=== PATIENT | female | born 1935 | race Caucasian/White ===

== ENCOUNTER 2020-05-25 17:35 | Emergency (ER) | payer MEDICARE, MEDICAID ==
[~2020-05-25] VITALS: Ht 167.6 cm; Wt 128.6 kg
--- NOTE | 2020-05-25 18:16 | EKG ---
[address] [address] Test Date: 2020-05-25 Test Time: 18:09:59 Pat Name: YAAKOV MARTE Department: Room: Gender: F Erp Programmer: BRIDGET : 1935 Requested By: PASTORA BURNHAM Order Number: [id number] Reading MD: Yao Garcia Measurements Intervals [place] Rate: 71 P: 38 MO: 264 QRS: 26 QRSD: 98 T: 31 QT: 380 QTc: 413 Interpretive Statements SINUS ARRHYTHMIA PROLONGED MO INTERVAL Electronically Signed On 05-31-2020 12:08:52 PRODUCT DEVELOPMENT SPECIALIST by Yao Garcia
--- NOTE | 2020-05-25 18:19 | PHYS DOC ---
Past History Past Medical History: A-Fib, COPD, Hypertension Past Surgical History: No Surgical History Alcohol Use: None Adult General Chief Complaint Chief Complaint: General Complaint HPI HPI Patient is a female with history of COPD on oxygen 2 L at night, A. fib, hypertension, who presents the ED today to be evaluated for chills and not getting warm. Patient states for the last 3 days she keeps getting chills and feeling cold. She sates she has tired raising the temperature in the house as well as covering herself with no improvement. Denies any chest pain, unusual shortness of breath, denies any abdominal pain, diarrhea. Review of Systems Review of Systems Constitutional: Reports chils. Denies fever Eyes: Denies change in visual acuity, redness, or eye pain [] HENT: Denies nasal congestion or sore throat [] Respiratory: Denies cough or shortness of breath [] Cardiovascular: No additional information not addressed in HPI [] GI: Denies abdominal pain, nausea, vomiting, bloody stools or diarrhea [] : Denies dysuria or hematuria [] Musculoskeletal: Denies back pain or joint pain [] Integument: Denies rash or skin lesions [] Neurologic: Denies headache, focal weakness or sensory changes [] All other systems were reviewed and found to be within normal limits, except as documented in this note. Allergies Allergies Allergies Coded Allergies Type Severity Reaction Last Updated Verified morphine Allergy Unknown 05/25/20 Yes Physical Exam Physical Exam Constitutional: Well developed, well nourished, no acute distress, non-toxic appearance. [] HENT: Normocephalic, atraumatic, bilateral external ears normal, oropharynx moist, no oral exudates, nose normal. [] Eyes: PERRLA, EOMI, conjunctiva normal, no discharge. [] Neck: Normal range of motion, no tenderness, supple, no stridor. [] Cardiovascular:irregular Lungs & Thorax: Bilateral breath sounds clear to auscultation [] Abdomen: Bowel sounds normal, soft, no tenderness, no masses, no pulsatile masses. [] Skin: Warm, dry, no erythema, no rash. [] Back: No tenderness, no CVA tenderness. [] Extremities: No tenderness, no cyanosis, no clubbing, ROM intact, no edema. [] Neurologic: Alert and oriented X 3, normal motor function, normal sensory function, no focal deficits noted. [] Psychologic: Affect normal, judgement normal, mood normal. [] Current Patient Data Vital Signs Vital Signs Date Time Temp Pulse Resp B/P (MAP) Pulse Ox O2 Delivery O2 Flow Rate FiO2 05/25/20 17:40 97.8 78 16 161/74 (103) 95 Room Air EKG EKG [address] Hernández sinus rhythm HR 71 no STEMI[] Radiology/Procedures Radiology/Procedures []PROCEDURE: PORTABLE CHEST 1V Exam: Chest one view INDICATION: Chills TECHNIQUE: Frontal view of the chest Comparisons: None FINDINGS: Heart is enlarged. Pulmonary vessels are within normal limits. The lung and pleural spaces are clear. There is a linear density measuring approximately 10 cm overlying the right nuria. IMPRESSION: 1. No acute cardiopulmonary process. 2. Linear density measuring approximately 10 cm overlying the right nuria which is unknown etiology. This may be exterior to the patient, correlate with physical exam. Electronically signed by: Suzi Perez MD (05/25/2020 6:22 PM) [facility] DICTATED AND SIGNED BY: SUZI PEREZ MD DATE: 05/25/201821 CC: MALACHI; PASTORA BURNHAM APRN; ROE MAYS ~ Heart Score Risk Factors: Risk Factors: DM, Current or recent (<one month) smoker, HTN, HLP, family history of CAD, obesity. Risk Scores: Risk Factors: DM, Current or recent (<one month) smoker, HTN, HLP, family history of CAD, obesity. Course & Med Decision Making Course & Med Decision Making Pertinent Labs and Imaging studies reviewed. (See chart for details) This is a 84-year-old female patient presenting to the ED today with chills and not feeling warm for 3 days. Vitals on arrival to the ED temperature is 97.8, heart rate 78, blood pressure 161/74, respirations 16, O2 sats 95% on room air. CBC with a normal WBC, hemoglobin 10.0, hematocrit 32.2, creatinine 1.9 with BUN of 34, patient states she has history of chronic renal insufficiency. She states she follows up with her PCP for this. Chest x-ray is negative, EKG is negative for any acute findings. Troponin is normal. Urine analysis negative for infection. She was discharged to home. Follow-up with her PCP in the course of this week or next week. Dragon Disclaimer Dragon Disclaimer This electronic medical record was generated, in whole or in part, using a voice recognition dictation system. Departure Departure: Impression: Primary Impression: Chills Additional Impressions: Person under investigation for COVID-19 CRF (chronic renal failure) Disposition: 01 DC HOME SELF CARE/HOMELESS Condition: STABLE Referrals: ROE MAYS (PCP) follow up in the course of this week or next week Patient Instructions: Fever, Adult, [id number] Additional Instructions: You were evaluated in the emergency room, your work-up was negative for any acute findings. You were tested for COVID-19. Quarantine yourself until you get results from us. Maintain good hand hygiene. We will call you with results from your test in the course of this week or next week. Continue following up with your primary care doctor. Consider keeping yourself warm including dressing warm, warm drinks at home and running the heat at a reasonable temperature but will keep it down. Problem Qualifiers Additional Impressions: CRF (chronic renal failure) Chronic kidney disease stage: unspecified stage Qualified Codes: N18.9 - Chronic kidney disease, unspecified PASTORA BURNHAM LITHOGRAPHIC STRIPPER May 25, 2020 18:19
[2020-05-25 18:25] VITALS: BP 159/84
--- NOTE | 2020-05-25 18:25 | RAD ---
Exam: Chest one view INDICATION: Chills TECHNIQUE: Frontal view of the chest Comparisons: None FINDINGS: Heart is enlarged. Pulmonary vessels are within normal limits. The lung and pleural spaces are clear. There is a linear density measuring approximately 10 cm overlying the right nuria. IMPRESSION: 1. No acute cardiopulmonary process. 2. Linear density measuring approximately 10 cm overlying the right nuria which is unknown etiology. This may be exterior to the patient, correlate with physical exam. Electronically signed by: Suzi Reynoso MD (05/25/2020 6:22 PM) [facility]
[2020-05-25 18:39] LABS: BASO % 1 % (0-3); EOS # 0.2 x10^3/uL (0.0-0.7); EOS % 3 % (0-3); HEMATOCRIT 32.2 % (36.0-47.0); LYMPH # 1.4 x10^3/uL (1.0-4.8); LYMPH % 23 % (24-48); MEAN CORPUSCULAR HEMOGLOBIN 27 pg (25-35); MEAN CORPUSCULAR HGB CONC 31 g/dL (31-37); MEAN CORPUSCULAR VOLUME 85 fL (79-100); MONO # 0.6 x10^3/uL (0.0-1.1); MONO % 10 % (0-9); NEUT % 63 % (31-73); PLATELET COUNT 239 x10^3/uL (140-400); RED BLOOD COUNT 3.77 x10^6/uL (3.50-5.40); RED CELL DISTRIBUTION WIDTH 14.1 % (11.5-14.5); WHITE BLOOD COUNT 6.2 x10^3/uL (4.0-11.0)
[2020-05-25 18:47] LABS: CALCIUM 8.7 mg/dL (8.5-10.1); CREATININE 1.9 mg/dL (0.6-1.0); GFR 25.1; POTASSIUM 4.2 mmol/L (3.5-5.1)
[2020-05-25 19:14] LABS: ALBUMIN 3.3 g/dL (3.4-5.0); ALBUMIN/GLOBULIN RATIO 0.8 (1.0-1.7); MAGNESIUM 2.3 mg/dL (1.8-2.4); TOTAL BILIRUBIN 0.2 mg/dL (0.2-1.0); TOTAL PROTEIN 7.7 g/dL (6.4-8.2)
[2020-05-25 19:50] LABS: BARBITURATES NEG (NEG); BENZODIAZEPINES NEG (NEG); CANNABINOIDS NEG (NEG); COCAINE NEG (NEG); METHADONE NEG (NEG); OPIATES NEG (NEG); PHENCYCLIDINE NEG (NEG)
[2020-05-25 19:51] LABS: BILIRUBIN,URINE NEG (NEG); CLARITY,URINE CLEAR; COLOR,URINE STRAW; GLUCOSE,URINE NEG (NEG); NITRITE,URINE NEG (NEG); RBC,URINE 0 /HPF (0-2); UROBILINOGEN,URINE 0.2 mg/dL (0.2 mg/dL)
[2020-05-25 19:52] LABS: BACTERIA,URINE FEW /HPF (0-FEW); SQUAMOUS EPITHELIAL CELL,UR FEW /LPF
[2020-05-25 19:56] LABS: AMPHETAMINE/METHAMPHETAMINE NEG (NEG)
--- NOTE | 2020-05-27 15:16 | NUR ---
IP: attempt to notify patient of CIVUD result, no working phone number, will send letter.
== END 2020-05-25 20:30 | disposition home or self-care (01) ==
LOC: ER 17:35
DX: I12.9 Hypertensive chronic kidney disease with stage 1 through stage 4 chronic kidney disease, or unspecified chronic kidney disease (principal); N18.9 Chronic kidney disease, unspecified; R50.9 Fever, unspecified; I48.91 Unspecified atrial fibrillation; J44.9 Chronic obstructive pulmonary disease, unspecified; Z20.828 Contact with and (suspected) exposure to other viral communicable diseases; Z88.5 Allergy status to narcotic agent
CPT/HCPCS: 36415; 71045; 80053; 80307; 81001; 82553; 83735; 83880; 84484; 85025; 87086; 93005; 99285; C9803; U0003; 87077; 87186

== ENCOUNTER 2020-06-13 12:47 | Inpatient (IN) | payer MEDICARE, MEDICAID ==
[~2020-06-13] VITALS: Ht 177.8 cm; Wt 125.1 kg
--- NOTE | 2020-06-13 13:19 | EKG ---
[address] [address] Test Date: 2020-06-13 Test Time: 13:11:23 Pat Name: YAAKOV MARTE Department: Room: Gender: F Day Habilitation Supervisor: DK : 1935 Requested By: PAVAN CHAPMAN Order Number: [id number] Reading MD: Measurements Intervals [place] Rate: 101 P: 0 ID: [id number] QRS: 26 QRSD: 90 T: 34 QT: 320 QTc: 416 Interpretive Statements SINUS TACHYCARDIA PROLONGED ID INTERVAL ABNORMAL ECG RI6.02 No previous ECG available for comparison
--- NOTE | 2020-06-13 13:27 | PHYS DOC ---
Past History Past Medical History: A-Fib, COPD, Hypertension Past Surgical History: No Surgical History Alcohol Use: None General Adult EDM: Chief Complaint: FEVER HPI: HPI: Patient is a 84-year-old female who arrives via EMS with chief complaint of low- grade fever and generalized weakness. Patient has had a low-grade febrile and difficulty walking over last couple days. Patient had a negative Covid test 4 days ago. Patient has chronic shortness of breath which is unchanged. Patient has difficulty ambulating. Is unable to get around at home. Patient denies any nausea vomiting or diarrhea. Review of Systems: Review of Systems: Constitutional: Denies fever or chills Eyes: Denies change in visual acuity HENT: Denies nasal congestion or sore throat Respiratory: Denies cough but has chronic shortness of breath Cardiovascular: Denies chest pain complains of chronic edema of bilateral lower extremities GI: Denies abdominal pain, nausea, vomiting, bloody stools or diarrhea : Complains urinary frequency Musculoskeletal: Integument: Denies rash Denies back pain or joint pain Neurologic: Denies headache, complains of generalized weakness worse in the lower extremities Endocrine: Denies polyuria or polydipsia Lymphatic: Denies swollen glands Psychiatric: Denies depression or anxiety Current Medications: Current Meds: Current Medications Ceftriaxone Sodium 1 gm/ Sodium Chloride 50 ml @ 100 mls/hr 1X ONCE IV ; Start 06/13/20 at 14:30; Stop 06/13/20 at 14:59 Sodium Chloride 500 ml @ 0 mls/hr 1X ONCE IV ; Start 06/13/20 at 14:30; Stop 06/13/20 at 14:31; Status DC Allergies: Allergies: Allergies Coded Allergies Type Severity Reaction Last Updated Verified morphine Allergy Unknown 06/13/20 Yes Physical Exam: PE: Constitutional: Well developed, well nourished, no acute distress, non-toxic appearance. [] HENT: Normocephalic, atraumatic, bilateral external ears normal, no trismus nose normal. [] Eyes: PERRLA, EOMI, conjunctiva normal, no discharge. [] Neck: Normal range of motion, no tenderness, supple, no stridor. [] Cardiovascular:Heart rate regular rhythm, peripheral pulses are intact cap refill is less than 3 seconds Lungs & Thorax: Bilateral breath sounds clear, no respiratory distress Abdomen: soft, no tenderness, no masses, no pulsatile masses. [] Skin: Warm, dry, no erythema, no rash. [] Back: No tenderness, no CVA tenderness. [] Extremities: No tenderness, no cyanosis, no clubbing, ROM intact, 2+ bilateral extremity edema Neurologic: Alert and oriented X 3, normal motor function, normal sensory function, no focal deficits noted. [] Generally weak Psychologic: Affect normal, judgement normal, mood normal. [] Current Patient Data: Labs: Laboratory Tests Test 06/13/20 13:23 06/13/20 13:30 Urine Collection Type Unknown Urine Color Yellow Urine Clarity Turbid Urine pH 7.0 Urine Specific [place] 1.020 Urine Protein Neg Urine Glucose (UA) Neg mg/dL Urine Ketones (Stick) Neg mg/dL Urine Blood Small Urine Nitrite Pos Urine Bilirubin Neg Urine Urobilinogen Dipstick 0.2 mg/dL Urine Leukocyte Esterase Small Urine RBC 6-10 /HPF Urine WBC 11-20 /HPF Urine Squamous Epithelial Cells Few /LPF Urine Bacteria Many /HPF White Blood Count 5.1 x10^3/uL Red Blood Count 3.70 x10^6/uL Hemoglobin 9.7 g/dL Hematocrit 31.0 % Mean Corpuscular Volume 84 fL Mean Corpuscular Hemoglobin 26 pg Mean Corpuscular Hemoglobin Concent 31 g/dL Red Cell Distribution Width 14.9 % Platelet Count 180 x10^3/uL Neutrophils (%) (Auto) 68 % Lymphocytes (%) (Auto) 12 % Monocytes (%) (Auto) 18 % Eosinophils (%) (Auto) 2 % Basophils (%) (Auto) 0 % Neutrophils # (Auto) 3.5 x10^3uL Lymphocytes # (Auto) 0.6 x10^3/uL Monocytes # (Auto) 0.9 x10^3/uL Eosinophils # (Auto) 0.1 x10^3/uL Basophils # (Auto) 0.0 x10^3/uL Sodium Level 141 mmol/L Potassium Level 4.1 mmol/L Chloride Level 105 mmol/L Carbon Dioxide Level 25 mmol/L Anion Gap 11 Blood Urea Nitrogen 30 mg/dL Creatinine 2.0 mg/dL Estimated GFR (Cockcroft-Gault) 23.7 BUN/Creatinine Ratio 15 Glucose Level 107 mg/dL Lactic Acid Level 0.8 mmol/L Calcium Level 8.3 mg/dL Total Bilirubin Pending Aspartate Amino Transf (AST/SGOT) Pending Alanine Aminotransferase (ALT/SGPT) Pending Alkaline Phosphatase Pending EW-Nsg-I-Type Natriuretic Peptide Pending Total Protein Pending Albumin Pending Albumin/Globulin Ratio Pending Current Medications Medications (Trade) Dose Ordered Sig/Benny Route PRN Reason Start Time Stop Time Status Last Admin Dose Admin Ceftriaxone Sodium 1 gm/ Sodium Chloride 50 ml @ 100 mls/hr 1X ONCE IV 06/13/20 14:30 06/13/20 14:59 Sodium Chloride 500 ml @ 0 mls/hr 1X ONCE IV 06/13/20 14:30 06/13/20 14:31 DC Vital Signs: Vital Signs Date Time Temp Pulse Resp B/P (MAP) Pulse Ox O2 Delivery O2 Flow Rate FiO2 06/13/20 12:58 100.2 106 15 130/46 (74 90 Room Air EKG: EKG: [] EKG interpreted by ut sinus tachycardia with a rate of 101 normal axis normal QTC, first-degree AV block, normal ST segments Radiology/Procedures: Radiology/Procedures: [][place] [address] IMAGING REPORT Signed PATIENT: YAAKOV MARTE JACCOUNT: [id number] : 1935 LOCATION: ER AGE: 84 SEX: F EXAM STATUS: REG ER ORD. PHYSICIAN: PAVAN CHAPMAN MD REASON: weak PROCEDURE: PORTABLE CHEST 1V PORTABLE CHEST 1V INDICATION: Reason: weak / Spl. Instructions: / History: . COMPARISON STUDY: 05/25/2020. FINDINGS: Rotation to the right. Lungs: Normal lung volume. No pulmonary mass or consolidation. The tracheobronchial tree and hilar structures are normal. Pleura: No pleural effusion or pneumothorax. Heart and Mediastinum: Cardiomegaly. Tortuous thoracic aorta. Bones: Advanced degenerative changes of the shoulders. IMPRESSION: No consolidation. Electronically signed by: Iva Breaux MD (06/13/2020 2:15 PM) [id number] DICTATED AND SIGNED BY: IVA BREAUX MD DATE: 06/13/20 1055 CC: PAVAN CHAPMAN MD; ROE MAYS ~ Heart Score: Risk Factors: Risk Factors: DM, Current or recent (<one month) smoker, HTN, HLP, family history of CAD, obesity. Risk Scores: Score 0 - 3: 2.5% MACE over next 6 weeks - Discharge Home Score 4 - 6: 20.3% MACE over next 6 weeks - Admit for Clinical Observation Score 7 - 10: 72.7% MACE over next 6 weeks - Early Invasive Strategies Course & Med Decision Making: Course & Med Decision Making Pertinent Labs and Imaging studies reviewed. (See chart for details) [] 84-year-old female presents with generalized weakness. Patient also has a low-grade fever. Patient be swabbed for COVID-19 and is a person under investigation. Patient also has a urinary tract infection will be treated with antibiotics for this. Discussed the case with Dr. Ignaico who will admit the patient. Dragon Disclaimer: Dragon Disclaimer: This electronic medical record was generated, in whole or in part, using a voice recognition dictation system. Departure Departure: Impression: Primary Impression: UTI (urinary tract infection) Additional Impressions: Person under investigation for COVID-19 Fever CRF (chronic renal failure) Generalized weakness Pyelonephritis Disposition: 01 DC HOME SELF CARE/HOMELESS Admitting Physician: Benito Ignacio Condition: STABLE Referrals: ROE MAYS (PCP) PAVAN CHAPMAN MD Jun 13, 2020 13:27
[2020-06-13 13:47] LABS: BILIRUBIN,URINE NEG (NEG); CLARITY,URINE TURBID; COLOR,URINE YELLOW; GLUCOSE,URINE NEG (NEG)
[2020-06-13 13:48] LABS: BACTERIA,URINE MANY /HPF (0-FEW); NITRITE,URINE POS (NEG); SQUAMOUS EPITHELIAL CELL,UR FEW /LPF; UROBILINOGEN,URINE 0.2 mg/dL (0.2 mg/dL)
--- NOTE | 2020-06-13 14:18 | RAD ---
PORTABLE CHEST 1V INDICATION: Reason: weak / Spl. Instructions: / History: . COMPARISON STUDY: 05/25/2020. FINDINGS: Rotation to the right. Lungs: Normal lung volume. No pulmonary mass or consolidation. The tracheobronchial tree and hilar structures are normal. Pleura: No pleural effusion or pneumothorax. Heart and Mediastinum: Cardiomegaly. Tortuous thoracic aorta. Bones: Advanced degenerative changes of the shoulders. IMPRESSION: No consolidation. Electronically signed by: Abiodun Breaux MD (06/13/2020 2:15 PM) [id number]
[2020-06-13 14:19] LABS: BASO % 0 % (0-3); EOS # 0.1 x10^3/uL (0.0-0.7); EOS % 2 % (0-3); HEMOGLOBIN 9.7 g/dL (12.0-15.5); LYMPH # 0.6 x10^3/uL (1.0-4.8); LYMPH % 12 % (24-48); MEAN CORPUSCULAR HEMOGLOBIN 26 pg (25-35); MEAN CORPUSCULAR HGB CONC 31 g/dL (31-37); MEAN CORPUSCULAR VOLUME 84 fL (79-100); MONO # 0.9 x10^3/uL (0.0-1.1); MONO % 18 % (0-9); NEUT # 3.5 x10^3uL (1.8-7.7); NEUT % 68 % (31-73); PLATELET COUNT 180 x10^3/uL (140-400); RED CELL DISTRIBUTION WIDTH 14.9 % (11.5-14.5); WHITE BLOOD COUNT 5.1 x10^3/uL (4.0-11.0)
[2020-06-13] MEDS ORDERED: IV NORMAL SALINE 500ML 500 ML IV ONE (14:30)
[2020-06-13 14:39] LABS: CALCIUM 8.3 mg/dL (8.5-10.1); GFR 23.7; POTASSIUM 4.1 mmol/L (3.5-5.1)
[2020-06-13 14:54] LABS: ALBUMIN 3.1 g/dL (3.4-5.0); ALBUMIN/GLOBULIN RATIO 0.7 (1.0-1.7); TOTAL BILIRUBIN 0.2 mg/dL (0.2-1.0); TOTAL PROTEIN 7.4 g/dL (6.4-8.2)
[2020-06-13] MEDS ORDERED: cefTRIAXone SODIUM 1 GM VIAL ONE (15:00)
[2020-06-13] MEDS ORDERED: IV NORMAL SALINE 50ML 50 ML ONE (15:00)
--- NOTE | 2020-06-13 15:19 | HP ---
ADMIT DATE: 06/13/2020 ATTENDING PHYSICIAN: Dr. Samuel. CHIEF COMPLAINT: Weakness. HISTORY OF PRESENT ILLNESS: The patient is an 84-year-old female who lives at home. She was admitted to the ED with low-grade fevers and generalized weakness since yesterday. She had difficulty walking. She had a negative COVID swabs 4 days ago, repeat swab is pending. Clinically, she has symptoms of urinary tract infections with an abnormal urinalysis, cultures are pending. Blood cultures have been drawn. She has been able to get around, but she has significant obesity and stasis dermatitis. She walks normally with the help of a walker. She is admitted then for treatment of urinary tract infection, rule out COVID-19 coronavirus. PAST MEDICAL HISTORY: Gleaned from the chart is significant for paroxysmal atrial fibrillation, COPD, essential hypertension. PAST SURGICAL HISTORY: No surgical history. ALLERGIES: SHE HAS ALLERGIES TO MORPHINE. CURRENT MEDICATIONS: I could not ascertain. We are in the process of determining the proper dosages at this time. SOCIAL HISTORY: She is a nonsmoker, nondrinker. FAMILY HISTORY: Noncontributory. REVIEW OF SYSTEMS: Significant for the generalized weakness. Negative recent COVID exposure. No nausea. She has some chronic anemia. She has arthritic type pain, no cough, congestion, high-grade fevers. All other systems reviewed and turned to be negative. PHYSICAL EXAMINATION: GENERAL: When I saw her, this is a pleasant elderly female. VITAL SIGNS: Initial temperature in the ED was 100.2 degrees Fahrenheit, blood pressure 130/46, pulse was 100 and regular, oxygen saturation 90% on room air. HEENT: Head is without trauma. Pupils are reactive. Sclerae nonicteric. Oropharynx is clear. NECK: Supple, no bruits identified. LUNGS: Good breath sounds without any rhonchi. CARDIOVASCULAR: Showed distant heart tones. No gallops. Peripheral pulses are palpable and full. ABDOMEN: Soft, obese, protuberant. No organomegaly. Bowel sounds are hypoactive. EXTREMITIES: Showed significant 3+ nonpitting edema with degenerative arthritis. NEUROLOGIC: Focally intact. Speech is fluent. SKIN: Warm and dry. LABORATORY DATA: Hemoglobin is 9.7 g/dL with a white count of 5100. Electrolytes showed a creatinine of 2.0. I do not know her baseline. BUN is 30. Electrolytes within normal range. Urinalysis showed large amount of cells and bacteria, cultures are pending. ASSESSMENT: 1. An 84-year-old female from home with low-grade fevers and weakness. I suspect she has a urinary tract infection. 2. Rule out COVID-19 infection. 3. Paroxysmal atrial fibrillation. 4. Essential hypertension. 5. Chronic obstructive pulmonary disease by history. 6. Generalized debilitation. PLAN: 1. Admit to the inpatient unit. 2. Intravenous antibiotics have been started. 3. Blood and urine cultures have been drawn. 4. Continue home meds once we ascertained the dosage. 5. Await COVID-19 swab. 6. Diet as tolerated. STACEY SAMUEL MD DR: GISSEL/carloz JOB#: [id number] / [id number] ROE Sy
[2020-06-13 16:31] VITALS: BP 112/76
[2020-06-13] MEDS ORDERED: FLU VACC QS 2020-21(6MOS+)/PF 0.5 ML SYRINGE. VAX IM ONE (19:30)
[2020-06-13] MEDS ORDERED: HYDR25TA PO (20:05)
[2020-06-13] MEDS ORDERED: OXYC-314 PO (20:05)
[2020-06-13] MEDS ORDERED: CARV25TA PO (20:05)
[2020-06-13] MEDS ORDERED: GABA800T5 PO (20:05)
[2020-06-13] MEDS ORDERED: LEVO75TA5 PO (20:05)
[2020-06-13] MEDS ORDERED: NORT10CA PO (20:05)
[2020-06-13] MEDS ORDERED: SIMV10TA15 PO (20:05)
[2020-06-13] MEDS ORDERED: LOPE2TAB27 PO (20:05)
[2020-06-13] MEDS ORDERED: OMEP20CA16 PO (20:05)
[2020-06-13] MEDS ORDERED: CYCL5TAB PO (20:05)
[2020-06-13] MEDS ORDERED: ROPI0.25 PO (20:05)
[2020-06-13] MEDS ORDERED: WARF-31 PO (20:05)
[2020-06-13] MEDS ORDERED: ANTI-COAG MONITOR BY PHARMACY. MC PRN (20:30)
[2020-06-13] MEDS: rOPINIRole 0.5 MG TABLET. PO SCH (20:46)
[2020-06-13] MEDS: oxyCODONE/APAP 5/325 1 TAB TABLET PO PRN (20:47)
[2020-06-13] MEDS: SIMVASTATIN 10 MG TABLET PO SCH (20:47)
[2020-06-13] MEDS: CYCLOBENZAPRINE 10 MG TABLET. PO PRN (20:47)
[2020-06-13] MEDS: GABAPENTIN 300 MG CAPSULE. PO SCH (20:47)
[2020-06-13] MEDS: GABAPENTIN 400 MG CAPSULE. PO SCH (20:47)
[2020-06-13] MEDS: hydrOXYzine HCL 25 MG TABLET PO SCH (20:47)
[2020-06-14 01:43] VITALS: BP 144/70
[2020-06-14] MEDS: oxyCODONE/APAP 5/325 1 TAB TABLET PO PRN ×3 (02:03→20:39)
[2020-06-14 06:26] VITALS: BP 160/64
[2020-06-14 06:33] VITALS: BP 154/71
[2020-06-14] MEDS: LEVOTHYROXINE 75 MCG TABLET PO SCH (07:40)
[2020-06-14] MEDS: GABAPENTIN 300 MG CAPSULE. PO SCH ×2 (07:41→20:39)
[2020-06-14] MEDS: GABAPENTIN 400 MG CAPSULE. PO SCH ×2 (07:41→20:39)
[2020-06-14] MEDS: PANTOPRAZOLE 40 MG TABLET. PO SCH (07:42)
[2020-06-14] MEDS: CARVEDILOL 12.5 MG TABLET PO SCH ×2 (07:42→17:15)
[2020-06-14] MEDS ORDERED: FLU VACC QS 2020-21(6MOS+)/PF 0.5 ML SYRINGE. VAX IM ONE (09:00)
[2020-06-14] MEDS ORDERED: WARFARIN 5 MG TABLET. PO SCH (09:00)
[2020-06-14 10:57] VITALS: BP 102/84
[2020-06-14] MEDS ORDERED: DEXAMETHASONE 4 MG TABLET PO SCH (14:00)
[2020-06-14 15:10] VITALS: BP 116/74
[2020-06-14 19:50] VITALS: BP 159/92
[2020-06-14] MEDS: SIMVASTATIN 10 MG TABLET PO SCH (20:38)
[2020-06-14] MEDS: rOPINIRole 0.5 MG TABLET. PO SCH (20:38)
[2020-06-14] MEDS: FAMOTIDINE 20 MG TABLET PO SCH (20:38)
[2020-06-14] MEDS: hydrOXYzine HCL 25 MG TABLET PO SCH (20:39)
--- NOTE | 2020-06-15 00:54 | PN ---
DATE: 06/14/2020 ATTENDING PHYSICIAN: Dr. Samuel. SUBJECTIVE: The patient is feeling a little better. She denies any pain or nausea. She is less weak. OBJECTIVE FINDINGS: VITAL SIGNS: Blood pressure today is 102/84, pulse 80 and regular. She is afebrile. Oxygen saturation 94% on 2 liters nasal cannula. HEENT: Head is without trauma. Pupils are reactive. Sclerae nonicteric. Oropharynx clear. NECK: Supple, no bruits. LUNGS: Good breath sounds. CARDIOVASCULAR: Showed regular heart tones. No gallops. ABDOMEN: Soft. EXTREMITIES: Without edema. NEUROLOGIC: Focally intact. Speech is fluent. SKIN: Warm and dry. LABORATORY DATA: Her serology was indeed positive for coronavirus. Repeat chemistry panel was pending. Her creatinine yesterday was 2.0. ASSESSMENT: 1. An 84-year-old female with generalized weakness. 2. COVID-19 coronavirus infection. 3. Urinary tract infection. 4. Paroxysmal atrial fibrillation. 5. Essential hypertension. 6. Chronic kidney disease stage 3. 7. Chronic obstructive pulmonary disease. PLAN: 1. We will initiate empiric Lovenox, Decadron and zinc. 2. Diet as tolerated. 3. Continue antibiotics for UTI. 4. Discharge planning. Eventually, the daughter would like her in a subacute rehab facility. STACEY SAMUEL MD DR: GISSEL/carloz JOB#: [id number] / [id number]
[2020-06-15 01:06] VITALS: BP 139/96
[2020-06-15 05:35] VITALS: BP 149/95
[2020-06-15] MEDS: LEVOTHYROXINE 75 MCG TABLET PO SCH (08:11)
[2020-06-15] MEDS: GABAPENTIN 400 MG CAPSULE. PO SCH ×2 (08:11→19:06)
[2020-06-15] MEDS: GABAPENTIN 300 MG CAPSULE. PO SCH ×2 (08:11→19:05)
[2020-06-15] MEDS: CARVEDILOL 12.5 MG TABLET PO SCH ×2 (08:11→16:24)
[2020-06-15] MEDS: PANTOPRAZOLE 40 MG TABLET. PO SCH (08:11)
[2020-06-15] MEDS: CYCLOBENZAPRINE 10 MG TABLET. PO PRN ×2 (08:11→19:05)
[2020-06-15] MEDS: oxyCODONE/APAP 5/325 1 TAB TABLET PO PRN ×2 (08:12→19:06)
[2020-06-15] MEDS: ZINC SULFATE 220 MG CAPSULE. PO SCH (08:15)
[2020-06-15 12:23] VITALS: BP 138/83
[2020-06-15 15:00] VITALS: BP 129/98
[2020-06-15] MEDS ORDERED: WARFARIN 5 MG TABLET. PO SCH (16:00)
[2020-06-15] MEDS: rOPINIRole 0.5 MG TABLET. PO SCH (19:05)
[2020-06-15] MEDS: hydrOXYzine HCL 25 MG TABLET PO SCH (19:05)
[2020-06-15] MEDS: SIMVASTATIN 10 MG TABLET PO SCH (19:05)
[2020-06-15] MEDS: FAMOTIDINE 20 MG TABLET PO SCH (19:05)
[2020-06-15 20:00] VITALS: BP 141/92
[2020-06-15 23:02] VITALS: BP 133/72
[2020-06-16 04:34] VITALS: BP 162/97
[2020-06-16 06:58] LABS: ALBUMIN/GLOBULIN RATIO 0.7 (1.0-1.7); CALCIUM 7.9 mg/dL (8.5-10.1); CREATININE 1.9 mg/dL (0.6-1.0); GFR 25.1; HEMATOCRIT 30.8 % (36.0-47.0); HEMOGLOBIN 9.6 g/dL (12.0-15.5); POTASSIUM 4.1 mmol/L (3.5-5.1); RED BLOOD COUNT 3.69 x10^6/uL (3.50-5.40); RED CELL DISTRIBUTION WIDTH 14.4 % (11.5-14.5); TOTAL BILIRUBIN 0.1 mg/dL (0.2-1.0); TOTAL PROTEIN 7.3 g/dL (6.4-8.2); WHITE BLOOD COUNT 4.3 x10^3/uL (4.0-11.0)
[2020-06-16] MEDS: CYCLOBENZAPRINE 10 MG TABLET. PO PRN (09:11)
[2020-06-16] MEDS: CARVEDILOL 12.5 MG TABLET PO SCH ×2 (09:12→18:15)
[2020-06-16] MEDS: PANTOPRAZOLE 40 MG TABLET. PO SCH (09:13)
[2020-06-16] MEDS: GABAPENTIN 300 MG CAPSULE. PO SCH ×2 (09:13→19:19)
[2020-06-16] MEDS: LEVOTHYROXINE 75 MCG TABLET PO SCH (09:13)
[2020-06-16] MEDS: GABAPENTIN 400 MG CAPSULE. PO SCH ×2 (09:13→19:19)
[2020-06-16] MEDS: ZINC SULFATE 220 MG CAPSULE. PO SCH (09:13)
[2020-06-16 12:03] VITALS: BP 144/85
--- NOTE | 2020-06-16 14:31 | PN ---
DATE: 06/15/2020 SUBJECTIVE: The patient saw the patient is an 84-year-old female patient who apparently was brought to the Emergency Room with complaint of low-grade fever and generalized weakness. She also had difficulty walking over the last couple of days. She has negative COVID test about 4 days prior to admission. She has chronic shortness of breath, which has been unchanged. The patient has difficulty ambulating. She is unable to get around at home. She is known to have obstructive sleep apnea, on BiPAP machine. She apparently was evaluated in the Emergency Room and her coronavirus was detected on 06/13/2020; however, all her lab works are stable. When I examined her this morning, she was resting flat in bed, in no apparent distress. She was on BiPAP machine, maintaining her oxygen saturation at 95% on 2 liters of oxygen. PHYSICAL EXAMINATION: VITAL SIGNS: Her heart rate was 68, blood pressure was 138/83, temperature 97.6, respiratory rate was 18 and oxygen saturation was 95%. HEENT: Showed normocephalic, atraumatic. NECK: Supple. HEART: Normal first and second heart sounds. No gallop, rub or murmur. CHEST: Clear to auscultation. No crepitation or rhonchi. ABDOMEN: Distended, soft, nontender. NEUROLOGIC: She is awake, alert, responding appropriately. All cranial nerves are intact. She moves extremities without difficulty. Her intake was 713, no output was recorded. LABORATORY DATA: Her most recent lab work showed a serum sodium 141, potassium 4.1, chloride 105, bicarbonate 25, anion gap of 11, BUN 30, creatinine 2, estimated GFR was 24 mL per minute. Her glucose 107, calcium was 8.3. Total bilirubin, AST, ALT, alkaline phosphatase were normal. Her beta natriuretic peptide was 576. Total protein 7.4, albumin was 3.1. Her prothrombin time was 15.9, INR 1.6. Her urine culture showed growth of more than 100,000 colony forming units per mL of Escherichia coli sensitive to all antibiotics. Her blood cultures so far showed no growth after 2 days. ASSESSMENT: 1. An 84-year-old female with generalized weakness. 2. COVID-19 coronavirus infection. 3. Urinary tract infection. 4. Paroxysmal atrial fibrillation, rate controlled, well anticoagulated. 5. Essential hypertension. 6. Chronic kidney disease stage 3. 7. Chronic obstructive pulmonary disease. PLAN: Continue with Lovenox, Decadron and continue with IV antibiotic for UTI. Apparently, the daughter is unable to take care of her at home and would like her to go to a residential facility. GLADYS ZAMUDIO MD DR: CAR/carloz JOB#: [id number] / [id number]
[2020-06-16 15:25] VITALS: BP 116/92
[2020-06-16] MEDS ORDERED: WARFARIN 6 MG TABLET. PO ONE (16:00)
[2020-06-16 19:15] VITALS: BP 138/69
[2020-06-16] MEDS: FAMOTIDINE 20 MG TABLET PO SCH (19:18)
[2020-06-16] MEDS: oxyCODONE/APAP 5/325 1 TAB TABLET PO PRN (19:19)
[2020-06-16] MEDS: hydrOXYzine HCL 25 MG TABLET PO SCH (19:19)
[2020-06-16] MEDS: rOPINIRole 0.5 MG TABLET. PO SCH (19:19)
[2020-06-16] MEDS: SIMVASTATIN 10 MG TABLET PO SCH (19:19)
[2020-06-16 22:49] VITALS: BP 140/75
[2020-06-17 05:13] VITALS: BP 133/82
[2020-06-17] MEDS: ZINC SULFATE 220 MG CAPSULE. PO SCH (07:43)
[2020-06-17] MEDS: PANTOPRAZOLE 40 MG TABLET. PO SCH (07:44)
[2020-06-17] MEDS: GABAPENTIN 400 MG CAPSULE. PO SCH (07:44)
[2020-06-17] MEDS: LEVOTHYROXINE 75 MCG TABLET PO SCH (07:44)
[2020-06-17] MEDS: GABAPENTIN 300 MG CAPSULE. PO SCH (07:44)
[2020-06-17] MEDS: CARVEDILOL 12.5 MG TABLET PO SCH (07:44)
[2020-06-17] MEDS ORDERED: LACTOBACILLUS RHAMNOSUS GG 1 CAPSULE. PO SCH (09:00)
[2020-06-17] MEDS ORDERED: CEFDINIR 300 MG CAPSULE PO SCH (09:00)
--- NOTE | 2020-06-17 10:26 | PN ---
DATE: 06/16/2020 SUBJECTIVE: The patient is resting flat in bed, in no apparent distress. On questioning her, denied any complaint. The nursing staff did not voice any concern and stated that she did very well. She was on room air, maintaining her oxygen saturation at 95%. PHYSICAL EXAMINATION: GENERAL: When I examined her, she looked somewhat pale, but no jaundice, cyanosis or thyromegaly. No jugular venous distention. No limb edema. VITAL SIGNS: Her heart rate was 72, blood pressure was 144/85, temperature was 96.9, respiratory rate 20, and oxygen saturation was 95%. HEAD, EYES, EARS, NOSE AND THROAT: Showed normocephalic, atraumatic. NECK: Supple. HEART: Showed normal first and second heart sounds. No gallop, rub or murmur. CHEST: Clear to auscultation. No crepitation or rhonchi. ABDOMEN: Distended, soft, nontender. NEUROLOGIC: She is demented, but without any obvious lateralizing sign. Her intake was 1600, no output was recorded. LABORATORY DATA: Her lab work this morning showed a white cell count of 4300, hemoglobin 9.6, hematocrit 30.8, MCV 84 and platelet count of 179,000. Her serum sodium was 140, potassium 4.1, chloride 105, bicarbonate 28, anion gap of 7, BUN 37, creatinine 1.9, estimated GFR was 25 mL per minute. Her glucose 132, calcium was 7.9. Total bilirubin, AST, ALT, alkaline phosphatase were normal. Total protein 7.3, albumin 3. Her prothrombin time was 15, INR 1.5. Urinalysis was essentially unremarkable. Her coronavirus SARS-CoV-2 by PCR was positive. ASSESSMENT: 1. An 84-year-old female with generalized weakness. 2. COVID-19 coronavirus infection. 3. Urinary tract infection. 4. Paroxysmal atrial fibrillation, rate controlled, well anticoagulated. 5. Essential hypertension. 6. Chronic kidney disease stage 3. 7. Chronic obstructive pulmonary disease. The patient will be discharged tomorrow to [facility]. GLADYS ZAMUDIO MD DR: CAR/carloz JOB#: [id number] / [id number]
[2020-06-17 10:51] VITALS: BP 111/83
[2020-06-17 14:39] VITALS: BP 105/78
[2020-06-17] MEDS ORDERED: WARFARIN 1 MG TABLET. PO ONE (16:00)
[2020-06-17] MEDS ORDERED: WARFARIN 6 MG TABLET. PO ONE (16:00)
--- NOTE | 2020-06-17 23:32 | DS ---
DATE OF DISCHARGE: 06/17/2020 HOSPITAL COURSE: The patient is an 84-year-old female patient who was admitted on 06/13/2020 with low-grade fever, weakness, and there was suspicion that she has urinary tract infection; however, subsequently she was found to be tested positive for coronavirus COVID-19. She continued to be mostly asymptomatic, hemodynamically stable and afebrile. Her white cell count and platelets were normal as well as her chemistry and a decision was made to discharge her to [facility]. PHYSICAL EXAMINATION: GENERAL: When I saw her this afternoon, she looked well and was clearly in no apparent respiratory distress. No pallor, jaundice, cyanosis, or thyromegaly. No jugular venous distension. No limb edema. VITAL SIGNS: Her heart rate was 82, blood pressure was 105/78, temperature was 99, respiratory rate was 20, and oxygen saturation was 95% on 2.5 liters of oxygen. HEAD, EYES, EARS, NOSE AND THROAT: Showed normocephalic, atraumatic. NECK: Supple. CARDIAC: Normal first and second heart sounds. No gallop, rub or murmur. CHEST: Clear to auscultation. No crepitation or rhonchi. ABDOMEN: Distended, soft, nontender. NEUROLOGIC: She was demented, but without any obvious lateralizing sign. Her intake over the last 24 hours was 1140, no output was recorded. LABORATORY DATA: As of yesterday showed a white cell count of 4300, hemoglobin 9.6, hematocrit 31, MCV 94 and platelet count of 179,000. Serum sodium 140, potassium 4.1, chloride 105, bicarbonate 28, anion gap of 7, BUN 37, creatinine 1.9, estimated GFR was 25 mL per minute. Her glucose 132, calcium was 7.9. Total bilirubin, AST, ALT, alkaline phosphatase were normal. Total protein 7.3, albumin was 3. DISCHARGE MEDICATIONS: The patient was discharged to [facility] to continue on carvedilol 25 mg twice a day, Flexeril 5 mg 3 times a day, gabapentin 800 mg 3 times a day, hydroxyzine 25 mg at bedtime, levothyroxine sodium 75 mcg daily, loperamide 2 mg at bedtime, nortriptyline 10 mg p.o. at bedtime, omeprazole 20 mg daily, oxycodone/APAP 5/325 one tablet every 6 hours, Requip 0.5 mg at bedtime, simvastatin 10 mg at bedtime, warfarin 5 mg daily. Her prothrombin time this morning was 15.5, INR 1.5. FINAL DISCHARGE DIAGNOSES: 1. Asymptomatic COVID-19 virus infection. 2. Urinary tract infection. 3. Paroxysmal atrial fibrillation, rate controlled, well anticoagulated. 4. Essential hypertension. 5. Chronic kidney disease stage 3. 6. Chronic obstructive pulmonary disease. 7. Morbid obesity, obstructive sleep apnea, on CPAP. GLADYS ZAMUDIO MD DR: CAR/carloz JOB#: [id number] / [id number]
== END 2020-06-17 15:39 | DRG 871 ==
LOC: ER 12:47 → 1 SOUTH 14:30
PROVIDERS: ADMIT Hospitalist; ATTEND Hospitalist
PROC: 5A09357 Assistance with Respiratory Ventilation, Less than 24 Consecutive Hours, Continuous Positive Airway Pressure (ICD-10-PCS; principal; 2020-06-15)
DX: A41.89 Other specified sepsis (principal); U07.1 COVID-19; N39.0 Urinary tract infection, site not specified; N12 Tubulo-interstitial nephritis, not specified as acute or chronic; E66.01 Morbid (severe) obesity due to excess calories; G47.33 Obstructive sleep apnea (adult) (pediatric); I12.9 Hypertensive chronic kidney disease with stage 1 through stage 4 chronic kidney disease, or unspecified chronic kidney disease; I48.0 Paroxysmal atrial fibrillation; I87.2 Venous insufficiency (chronic) (peripheral); J44.9 Chronic obstructive pulmonary disease, unspecified; N18.30 Chronic kidney disease, stage 3 unspecified; Z68.39 Body mass index [BMI] 39.0-39.9, adult; Z79.899 Other long term (current) drug therapy; Z88.8 Allergy status to other drugs, medicaments and biological substances
CPT/HCPCS: 36415; 71045; 80053; 81001; 83605; 83880; 84484; 85025; 85027; 85610; 87040; 87077; 87086; 87186; 90471; 90686; 93005; 96365; 99285; J0696; J7040; J8540; U0003; 97535

== ENCOUNTER 2020-08-09 21:10 | Inpatient (IN) | payer MEDICARE, MEDICAID ==
[~2020-08-09] VITALS: Ht 177.8 cm; Wt 128.4 kg
[~2020-08-09 21:10] MED LIST: CARV25TA PO; CYCL5TAB PO; GABA800T5 PO; HYDR25TA PO; LEVO75TA5 PO; LOPE2TAB27 PO; NORT10CA PO; OMEP20CA16 PO; OXYC-314 PO; ROPI0.25 PO; SIMV10TA15 PO; WARF-31 PO
--- NOTE | 2020-08-09 21:22 | PHYS DOC ---
Past History Past Medical History: A-Fib, Anemia, Anxiety, Arthritis, CHF, COPD, CVA, Dementia, Hypertension, TIA, UTI Past Surgical History: Hip Replacement, Knee Replacement, Other Alcohol Use: None General Adult HPI: HPI: ".. I got bed bugs.. .. I am short of breath.. got fevers... . they sent me in .. my.. daughter... said I was not acting right... could nt... take care of ...me... "...".."I just so weak.. can't do anything....coughing too much.." Patient is a 84 year old female who presents with above hx and complaints increased dyspnea, weakness, fever and confusion today. Family has noticed mental status change since 1400 hrs. today. Patient lives at home with her daughter. Patient reportedly having low-grade fevers and generalized weakness. Has had increased problems with ambulation with her walker. Patient reporting marked increase in dyspnea. Patient is currently on 4 L dependent on oxygen .Hx. of COPD. Patient admitted last month on 06/13 for similar type presentation. At that time her Covid testing was negative on admission, but follow-up testing was positive for Covid. Patient has past history of A. fib, COPD, hypertension, morbid obesity, stasis dermatitis, urinary tract infection, chronic kidney disease stage III, obstructive sleep apnea on CPAP,, CVA, and TIA's.; The patient on arrival was noted to have bedbugs crawling all over her. Patient follows with Dr. Benitez as a primary care Review of Systems: Review of Systems: Constitutional: History of fever Eyes: Denies change in visual acuity HENT: Denies nasal congestion or sore throat Respiratory: History of nonproductive cough and shortness of breath Cardiovascular: Denies chest pain or edema GI: Denies abdominal pain, nausea, vomiting, bloody stools or diarrhea : Denies dysuria Musculoskeletal: Denies back pain or joint pain Integument: Denies rash. Complains of bedbugs Neurologic: Denies headache, focal weakness or sensory changes. Complaints of generalized weakness. Complaints by family of altered mental status and increased confusion Endocrine: Denies polyuria or polydipsia Lymphatic: Denies swollen glands Psychiatric: Denies depression or anxiety Family History: Family History: Noncontributory to presentation Current Medications: Current Meds: See nursing for home meds Allergies: Allergies: Allergies Coded Allergies Type Severity Reaction Last Updated Verified morphine Allergy Unknown 06/13/20 Yes Physical Exam: PE: Constitutional: Moderate acute distress, chronically ill and appearance. [] HENT: Normocephalic, atraumatic, bilateral external ears normal, oropharynx moist, no oral exudates, nose swollen turbinates. Eyes: PERRLA, EOMI, conjunctiva normal, no discharge. Glasses.] Neck: Normal range of motion, no tenderness, supple, no stridor. More than 17 inches circumference no bruits appreciated. JVD sitting position. Cardiovascular: Tachycardia heart rate, irregular regular rhythm, no murmur, PMI to the left. Monitor shows A. fib with rapid ventricular response. Lungs & Thorax: bilateral breath sounds equal apex with scattered wheezes and crackles in bases on auscultation [.Rhonchi on Rt. Abdomen: Bowel sounds normal, soft, no tenderness, no masses, no pulsatile masses. Morbidly obese Skin: Warm, dry, no erythema, no rash. Bedbugs. Venous stasis changes. Back: No tenderness, no CVA tenderness. [] Extremities: No tenderness, no cyanosis, no clubbing, ROM intact, edema to mid leg, venous stasis changes, no cording,. [] Arthritic changes.Knee and hip scar. Neurologic: Alert and oriented her name and place,, moves all extremities on request, does have distal sensory, very poor historian Psychologic: Affect anxious, judgement appears impaired, mood depressed EKG: EKG: My interpretation EKG shows a A. fib rhythm with rapid ventricular response at 120 bpm. [] Radiology/Procedures: Radiology/Procedures: [[address] [address] IMAGING REPORT Signed PATIENT: YAAKOV MARTEUNT: [id number] : 1935 LOCATION: ER AGE: 84 SEX: F EXAM STATUS: REG ER ORD. PHYSICIAN: ABRAHAM GARCIA MD REASON: dyspnea PROCEDURE: PORTABLE CHEST 1V EXAM: AP View of the chest DATE: 08/09/2020 9:29 PM INDICATION: Reason: dyspnea / Spl. Instructions: / History: COMPARISON: 06/13/20, 05/25/2020 FINDINGS: The heart is not enlarged. Mediastinal and hilar contours are stable. Parenchymal opacities in the right midlung and bilateral lung bases, likely consolidative process such as pneumonia. No pleural effusion or pneumothorax. IMPRESSION: Parenchymal opacities in the right midlung and bilateral lung bases, likely consolidative process such as pneumonia. Electronically signed by: Carlos Cheung MD (08/09/2020 11:31 PM) [facility] DI[facility]ATED AND SIGNED BY: CARLOS CHEUNG MD DATE: 08/09/20 8076 CC: ABRAHAM GARCIA MD; ROE BENITEZ ~[facility]0 0 ][place] [address] IMAGING REPORT Signed PATIENT: YAAKOV MARTE JACCOUNT: [id number] : 1935 LOCATION: ER AGE: 84 SEX: F EXAM STATUS: REG ER ORD. PHYSICIAN: ABRAHAM GARCIA MD REASON: Mental status change, headache, neck pain PROCEDURE: CT HEAD AND CERVICAL SPINE WO CT HEAD AND C-SPINE WO History: Reason: Mental status change, headache, neck pain / Spl. Instructions: / History: Comparison: None. Technique: Noncontrast CT imaging was performed of the head and cervical spine. Coronal and sagittal reconstructions were performed. Exposure: One or more of the following individualized dose reduction techniques were utilized for this examination: 1. Automated exposure control 2. Adjustment of the mA and/or kV according to patient size 3. Use of iterative reconstruction technique. Findings: Head CT: No intracranial hemorrhage. No mass effect. No hydrocephalus. Right frontal encephalomalacia. Mild brain parenchymal volume loss. Mild foci of decreased attenuation within the hemispheric white matter, most often due to chronic microvascular ischemia. Imaged orbits are unremarkable. Imaged paranasal sinuses and mastoid air cells are clear. No acute calvarial fracture. Cervical spine CT: Reversal normal cervical lordosis. Grade 1 anterolisthesis C2 on C3, C4 on C5 and C7 on T1. Normal vertebral body height. No fracture. Advanced multilevel degenerative disc changes most prominent C2-C3, C5-C6 and T1-T2. Multilevel facet arthropathy most prominent C3-C4 and C4-C5. Multilevel neuroforaminal narrowing. Multilevel canal narrowing is prominent C5-C6. Scattered linear atelectasis. Retropharyngeal course of the common and internal carotid arteries. Impression: Head CT: 1. No acute intracranial abnormality. 2. Right frontal encephalomalacia. Cervical spine CT: 1. No acute fracture or subluxation of the cervical spine. 2. Advanced multilevel cervical spondylosis. Electronically signed by: Arthur Stephen DO (08/09/2020 11:14 PM) [facility] DICTATED AND SIGNED BY: ARTHUR STEPHEN DO DATE: 08/09/202306 CC: ABRAHAM GARCIA MD; ROE BENITEZ ~[facility]0 0 Heart Score: Risk Factors: Risk Factors: DM, Current or recent (<one month) smoker, HTN, HLP, family history of CAD, obesity. Risk Scores: Score 0 - 3: 2.5% MACE over next 6 weeks - Discharge Home Score 4 - 6: 20.3% MACE over next 6 weeks - Admit for Clinical Observation Score 7 - 10: 72.7% MACE over next 6 weeks - Early Invasive Strategies Course & Med Decision Making: Course & Med Decision Making Pertinent Labs and Imaging studies reviewed. (See chart for details) Discussed presentation, testing and treatment plan with Dr. Ignacio. Admit to ICU. Requested retesting for Covid 19. Requested patient received Rocephin. Impression: 1. Altered mental status 2. Fever 102.1 on arrival. 3. Weakness 4. Dyspnea- Hypoxia ( Requires 4 Lt. N/C) 5. COPD bronchitis exacerbation 6. Anemia hemoglobin 8.9 7. Chronic renal dysfunction/disease stage III 8. Bedbug infested 9. Diabetes glucose 138 10. Acute on chronic CHF BNP 1363 11.. A. fib with rapid ventricular response 12. Atypical pneumonia RML 13. Hx.COVID+ 05/2020 14. Elevated D-dimer 0.71 15. Malnutrition - alb=3.0 [] Dragon Disclaimer: Dragtish Disclaimer: This electronic medical record was generated, in whole or in part, using a voice recognition dictation system. Departure Departure: Referrals: ROE BENITEZ (PCP) Tj Disclaimer This chart was dictated in whole or in part using Voice Recognition software in a busy, high-work load, and often noisy Emergency Department environment. It may contain unintended and wholly unrecognized errors or omissions. Dragon Disclaimer This chart was dictated in whole or in part using Voice Recognition software in a busy, high-work load, and often noisy Emergency Department environment. It may contain unintended and wholly unrecognized errors or omissions. Dragon Disclaimer This chart was dictated in whole or in part using Voice Recognition software in a busy, high-work load, and often noisy Emergency Department environment. It may contain unintended and wholly unrecognized errors or omissions. ABRAHAM GARCIA MD Aug 09, 2020 21:22
[2020-08-09] MEDS ORDERED: ASPIRIN 325 MG TABLET PO ONE (21:30)
[2020-08-09 22:06] LABS: BASO % 0 % (0-3); EOS # 0.1 x10^3/uL (0.0-0.7); EOS % 1 % (0-3); HEMATOCRIT 28.5 % (36.0-47.0); HEMOGLOBIN 8.9 g/dL (12.0-15.5); LYMPH # 0.8 x10^3/uL (1.0-4.8); LYMPH % 8 % (24-48); MEAN CORPUSCULAR HEMOGLOBIN 25 pg (25-35); MEAN CORPUSCULAR HGB CONC 31 g/dL (31-37); MEAN CORPUSCULAR VOLUME 80 fL (79-100); MONO % 10 % (0-9); NEUT # 8.4 x10^3uL (1.8-7.7); NEUT % 81 % (31-73); PLATELET COUNT 196 x10^3/uL (140-400); RED BLOOD COUNT 3.55 x10^6/uL (3.50-5.40); RED CELL DISTRIBUTION WIDTH 16.6 % (11.5-14.5); WHITE BLOOD COUNT 10.3 x10^3/uL (4.0-11.0)
[2020-08-09 22:07] LABS: BGAS PH 7.41 (7.35-7.45)
[2020-08-09 22:10] LABS: BARBITURATES NEG (NEG); BENZODIAZEPINES NEG (NEG); CANNABINOIDS NEG (NEG); COCAINE NEG (NEG); METHADONE NEG (NEG); OPIATES NEG (NEG); PHENCYCLIDINE NEG (NEG)
[2020-08-09 22:15] LABS: CALCIUM 8.7 mg/dL (8.5-10.1); CREATININE 1.8 mg/dL (0.6-1.0); GFR 26.7; POTASSIUM 4.5 mmol/L (3.5-5.1)
[2020-08-09] MEDS ORDERED: IV NORMAL SALINE 50ML 50 ML ONE (22:15)
[2020-08-09] MEDS ORDERED: ACETAMINOPHEN 500 MG TABLET PO ONE (22:15)
[2020-08-09] MEDS ORDERED: cefTRIAXone SODIUM 1 GM VIAL ONE (22:15)
[2020-08-09] MEDS ORDERED: FUROSEMIDE 40 MG/4 ML VIAL IVP ONE (22:15)
[2020-08-09 22:16] LABS: AMPHETAMINE/METHAMPHETAMINE NEG (NEG); BACTERIA,URINE 0 /HPF (0-FEW); BILIRUBIN,URINE NEG (NEG); CLARITY,URINE CLEAR; COLOR,URINE YELLOW; GLUCOSE,URINE NEG (NEG); NITRITE,URINE NEG (NEG); RBC,URINE 0 /HPF (0-2); UROBILINOGEN,URINE 0.2 mg/dL (0.2 mg/dL); WBC,URINE 0 /HPF (0-4)
[2020-08-09 22:30] LABS: DIRECT BILIRUBIN 0.1 mg/dL (0.0-0.2); TOTAL BILIRUBIN 0.5 mg/dL (0.2-1.0); TOTAL PROTEIN 7.5 g/dL (6.4-8.2)
[2020-08-09] MEDS ORDERED: IV NORMAL SALINE 100ML 100 ML ONE (22:36)
[2020-08-09] MEDS ORDERED: dilTIAZem 25 MG/5 ML VIAL IVP ONE ×2 (22:37→22:45)
[2020-08-09] MEDS ORDERED: methylPREDNISolone SOD SUCC PF 125 MG/2 ML VIAL. IV ONE (22:45)
[2020-08-09] MEDS ORDERED: dilTIAZem VIAL 125 MG in IV NORMAL SALINE 100ML 100 ML IV ONE ×2 (22:45→23:00)
[2020-08-09] MEDS ORDERED: ENOXAPARIN ** NOTE DOSE ** SYRINGE SQ ONE (22:45)
[2020-08-09] MEDS ORDERED: ONDANSETRON PF 4 MG/2 ML VIAL. IVP PRN (23:00)
[2020-08-09] MEDS ORDERED: ACETAMINOPHEN 325 MG TABLET PO PRN (23:00)
[2020-08-09] MEDS ORDERED: ASPIRIN 325 MG TABLET PO PRN (23:00)
--- NOTE | 2020-08-09 23:03 | EKG ---
[address] [address] Test Date: 2020-08-09 Test Time: 21:39:12 Pat Name: YAAKOV MARTE Department: Room: Gender: F Hand [employer]: : 1935 Requested By: ABRAHAM GARCIA Order Number: [id number] Reading MD: Measurements Intervals Eddy Rate: 120 P: DE: QRS: 35 QRSD: 88 T: 25 QT: 302 QTc: 431 Interpretive Statements IRREGULAR RHYTHM, NO P-WAVE FOUND LOW LIMB LEAD VOLTAGE NO SPECIFIC ECG ABNORMALITIES RI6.02 No previous ECG available for comparison
--- NOTE | 2020-08-09 23:16 | RAD ---
CT HEAD AND C-SPINE WO History: Reason: Mental status change, headache, neck pain / Spl. Instructions: / History: Comparison: None. Technique: Noncontrast CT imaging was performed of the head and cervical spine. Coronal and sagittal reconstructions were performed. Exposure: One or more of the following individualized dose reduction techniques were utilized for thi s examination: 1. Automated exposure control 2. Adjustment of the mA and/or kV according to patient size 3. Use of iterative reconstruction technique. Findings: Head CT: No intracranial hemorrhage. No mass effect. No hydrocephalus. Right frontal encephalomalacia. Mild brain parenchymal volume loss. Mild foci of decreased attenuatio n within the hemispheric white matter, most often due to chronic microvascular ischemia. Imaged orbits are unremarkable. Imaged paranasal sinuses and mastoid air cells are clear. No acute ca lvarial fracture. Cervical spine CT: Reversal normal cervical lordosis. Grade 1 anterolisthesis C2 on C3, C4 on C5 and C7 on T1. Normal ve rtebral body height. No fracture. Advanced multilevel degenerative disc changes most prominent C2-C3, C5-C6 and T1-T2. Multilevel facet arthropathy most prominent C3-C4 and C4-C5. Multilevel neuroforaminal narrowing. Multilevel canal na rrowing is prominent C5-C6. Scattered linear atelectasis. Retropharyngeal course of the common and internal carotid arteries. Impression: Head CT: 1. No acute intracranial abnormality. 2. Right frontal encephalomalacia. Cervical spine CT: 1. No acute fracture or subluxation of the cervical spine. 2. Advanced multilevel cervical spondylosis. Electronically signed by: Arthur Stephen DO (08/09/2020 11:14 PM) [facility]
--- NOTE | 2020-08-09 23:34 | RAD ---
EXAM: AP View of the chest DATE: 08/09/2020 9:29 PM INDICATION: Reason: dyspnea / Spl. Instructions: / History: COMPARISON: 06/13/20, 05/25/2020 FINDINGS: The heart is not enlarged. Mediastinal and hilar contours are stable. Parenchymal opacities in the right midlung and bilateral lung bases, likely consolidative process suc h as pneumonia. No pleural effusion or pneumothorax. IMPRESSION: Parenchymal opacities in the right midlung and bilateral lung bases, likely consolidative process suc h as pneumonia. Electronically signed by: Carlos Landeros MD (08/09/2020 11:31 PM) [facility]
[2020-08-10] VITALS (19 sets, daily range): BP systolic 100–144; BP diastolic 49–98
[2020-08-10] MEDS ORDERED: VANCOMYCIN 1 GM in IV NORMAL SALINE 250ML 250 ML IV SCH
--- NOTE | 2020-08-10 00:15 | NUR ---
Admission Note: pt transferred from ED to ICU Room 6, pt transferred from cart to bed with four person assist, Cardizem infusing as ordered, purewick intact (attached to suction), VSS, no c/o pain or n/v at this time, pt is a poor historian (history and meds obtained from previous records and outside med lists), ED RN notified daughterMarcia that pt was admitted to ICU. Home meds are entered but need to be reconciled in am. Lovenox given in ER but order not continued for floor. Pending Covid. Will continue to monitor.
[2020-08-10] MEDS ORDERED: VANCOMYCIN PER PHARMACY MC PRN (00:30)
[2020-08-10] MEDS ORDERED: MONT10TA94 PO (00:36)
[2020-08-10] MEDS: VANCOMYCIN 2 GM in IV NORMAL SALINE 500ML 500 ML IV ONE (00:45)
--- NOTE | 2020-08-10 02:25 | NUR ---
Pharmacy Vancomycin Dosing Note S:Consulted to monitor and dose vancomycin started 08/10/20. O:YAAKOV MARTE is a 84 year old F with , FEVER / POSS PNEUMONIA . Height: 5 feet, 10 inches Weight: 128.4 kg Lopez Body Weight: 68.50 Adjusted Body Weight: 92.46 Dosing Weight: Actual Other Antibiotics: CEFTRIAXONE 1GM IV Q24H LABS: Last BUN: 23 Last Creatinine: 1.8 Creatinine Clearance: 33 Last WBC: 10.3 Last Procalcitonin: Tmax (past 24 hours): Microbiology: I/O: Drug Levels: Last level: on at Last dose given at Vancomycin Dosing: Loading Dose: 2000 mg x1 08/10/20229 Dosing Weight: Actual Target Trough: 15-20 A: Based on: Actual Wt and CrCl P: 1. 08/11/20229 Vancomycin 2000 mg IV q24h 2. Follow up Trough level on 08/12/20 at 0200 3. Pharmacy will continue to monitor, follow and adjust therapy as needed. BRIAN BOWDEN RPH, 08/10/20 0225 Signed: 08/10/20 at 0226 by BRIAN BOWDEN RPH PHA
[2020-08-10 06:32] LABS: CALCIUM 8.4 mg/dL (8.5-10.1); CREATININE 1.9 mg/dL (0.6-1.0); GFR 25.1; POTASSIUM 4.1 mmol/L (3.5-5.1)
[2020-08-10 06:33] LABS: BASO % 0 % (0-3); EOS % 0 % (0-3); HEMATOCRIT 27.1 % (36.0-47.0); HEMOGLOBIN 8.6 g/dL (12.0-15.5); LYMPH # 0.5 x10^3/uL (1.0-4.8); LYMPH % 6 % (24-48); MEAN CORPUSCULAR HEMOGLOBIN 25 pg (25-35); MEAN CORPUSCULAR HGB CONC 32 g/dL (31-37); MEAN CORPUSCULAR VOLUME 79 fL (79-100); MONO # 0.1 x10^3/uL (0.0-1.1); MONO % 1 % (0-9); NEUT # 7.5 x10^3uL (1.8-7.7); NEUT % 92 % (31-73); PLATELET COUNT 175 x10^3/uL (140-400); RED BLOOD COUNT 3.42 x10^6/uL (3.50-5.40); RED CELL DISTRIBUTION WIDTH 16.7 % (11.5-14.5); WHITE BLOOD COUNT 8.2 x10^3/uL (4.0-11.0)
[2020-08-10] MEDS ORDERED: ASPIRIN CHEWABLE 81 MG TABLET. PO SCH (08:00)
[2020-08-10] MEDS ORDERED: IPRATRPIUM/ALBUTEROL 0.5/2.5MG 3 ML NEBU. NEB SCH (08:00)
[2020-08-10] MEDS: IPRATROPIUM/ALBUTEROL 20/100mcg/INH INHALER. INH SCH ×4 (09:34→20:03)
[2020-08-10] MEDS ORDERED: oxyCODONE/APAP 5/325 1 TAB TABLET PO PRN (13:15)
[2020-08-10] MEDS ORDERED: CYCLOBENZAPRINE 10 MG TABLET. PO PRN (13:30)
[2020-08-10] MEDS ORDERED: LOPERAMIDE 2 MG CAPSULE PO PRN (13:30)
--- NOTE | 2020-08-10 13:41 | PN ---
DATE: 08/10/2020 SUBJECTIVE: The patient is resting, slightly propped up in bed, no apparent distress. She is awake, alert. On questioning her, denied any chest pain. Did complain of shortness of breath. Denied any chills, rigors or fever. PHYSICAL EXAMINATION: GENERAL: When I examined her this afternoon, she looked well and was clearly in no apparent distress, pale, but no jaundice, cyanosis, or thyromegaly. No jugular venous distention. No limb edema. VITAL SIGNS: Her heart rate was 74, blood pressure was 125/71, temperature was 98, respiratory rate was 13 and oxygen saturation was 94% on 4 liters of oxygen by nasal cannula. HEENT: Showed normocephalic, atraumatic. NECK: Supple. HEART: Showed normal first and second heart sounds. No gallop or murmur. CHEST: Clear to auscultation. No crepitation or rhonchi. ABDOMEN: Distended, soft, nontender. NEUROLOGIC: She is awake, alert, responding mostly appropriately, although she has episodes of confusion. All her cranial nerves intact. She moves extremities without difficulty. She does have marked muscle wasting with her small muscles of both hands consistent with peripheral neuropathy. Her intake and output were incompletely recorded. LABORATORY DATA: Her lab work this morning showed a white cell count of 8200, hemoglobin 8.6, hematocrit 27, MCV 79 and platelet count of 175,000. Her chemistry showed a serum sodium 138, potassium 4.1, chloride 102, bicarbonate 27, anion gap of 9, BUN 23, creatinine 1.9, estimated GFR was 25 mL per minute. Her glucose 185, calcium was 8.4. Her lactic acid was 1.1. ASSESSMENT: 1. Acute on chronic hypoxic respiratory failure. 2. Community-acquired pneumonia. 3. Atrial fibrillation with rapid ventricular response. 4. Chronic obstructive pulmonary disease. 5. Hypertension. PLAN: To discontinue the vancomycin. I have reconciled all her other medications including her Coumadin. Would continue with diltiazem at this rate until around 7:00 this evening and then start her back on her Coreg and discontinue the Cardizem drip. I will repeat all her lab works again tomorrow, consult Physical and Occupational Therapy. GLADYS ZAMUDIO MD DR: CAR/carloz JOB#: [id number] / [id number]
--- NOTE | 2020-08-10 14:10 | HP ---
ADMIT DATE: 08/09/2020 HISTORY OF PRESENT ILLNESS: The patient is an 84-year-old female patient, who was brought to the Emergency Room complaining of shortness of breath, fever. She also states that she is very weak, cannot do anything, coughing too much and she is also apparently more confused. Family noticed mental status change since 2:00 in the afternoon. The patient lives at home with her daughter, reportedly having low-grade fever and generalized weakness, had increased problems with ambulation with her walker with a complaint of increased shortness of breath. She is currently on 4 liters of oxygen. She was admitted on 06/13 for similar presentation. At that time, her COVID testing was negative on admission, but followup testing was positive for COVID. She was noted to have bed bugs crawling all over her on arrival to the Emergency Room, where she was extensively investigated. She was found to be in atrial fibrillation with rapid ventricular response of 120 beats per minute. Her chest x-ray showed parenchymal opacities in the right mid lung and bilateral lung bases, likely consolidative process such as pneumonia, but no pleural effusion or pneumothorax. CT scan of the head showed no intracranial abnormality. She has right frontal encephalomalacia. CT scan of the cervical spine showed no acute fracture or subluxation of cervical spine, advanced multilevel cervical spondylosis. The patient had also lab work, which showed that she has normochromic normocytic anemia with normal white cell count and platelets. Her prothrombin time and INR are elevated as she is on Coumadin. Urinalysis was unremarkable and urine toxic screen was negative. The patient was admitted with diagnosis of altered mental status, fever and likely community-acquired pneumonia, atrial fibrillation with rapid ventricular response, elevated D-dimer; however, she is already fully anticoagulated with Coumadin. She was treated with ceftriaxone and vancomycin and also was given methylprednisolone and was started on a Cardizem drip to control the heart rate. PAST MEDICAL HISTORY: Significant for paroxysmal atrial fibrillation, COPD, essential hypertension, chronic kidney disease stage III, morbid obesity and obstructive sleep apnea, on CPAP. PAST SURGICAL HISTORY: Significant for bilateral total knee arthroplasty, cholecystectomy and right total hip arthroplasty. ALLERGIES: SHE IS ALLERGIC TO MORPHINE. MEDICATIONS: She is currently on following medications: She is on cyclobenzaprine 5 mg 3 times a day as needed, Coumadin 5 mg daily, simvastatin 10 mg daily, carvedilol 25 mg twice a day with meals, oxycodone/APAP 5/325 one tablet every 6 hours, gabapentin 800 mg 3 times a day, nortriptyline 10 mg at bedtime, hydroxyzine 25 mg at bedtime, Requip 0.5 mg at bedtime, montelukast 10 mg at bedtime, loperamide 2 mg as needed at bedtime for diarrhea, omeprazole 20 mg once a day and levothyroxine 75 mcg once a day. REVIEW OF SYSTEMS: As per history of present illness. PHYSICAL EXAMINATION: GENERAL: On arrival to the Emergency Room, the patient was pale, but no jaundice or cyanosis. No lymphadenopathy, no thyromegaly. No jugular venous distention. No lower limb edema. VITAL SIGNS: Her heart rate was 130, blood pressure was 134/77, temperature was 102.1, respiratory rate was 94 and oxygen saturation was 94% on 4 liters of oxygen. HEAD, EYES, EARS, NOSE AND THROAT: Showed normocephalic, atraumatic. NECK: Supple. HEART: Showed normal first and second heart sounds. No gallop, rub or murmur. CHEST: Clear to auscultation. No crepitation or rhonchi. ABDOMEN: Distended, soft. NEUROLOGIC: She was alert, oriented to her name and place. Moves all extremities on request. Does have distal sensory deficit. She has peripheral neuropathy. LABORATORY DATA: On arrival to the Emergency Room, the patient has lab work done, which showed a white cell count of 10,000, hemoglobin 9, hematocrit 29, MCV 80 and platelet count of 196,000 with a manual differential showed 81% polymorphs, 8% lymphocytes and 10% monocytes. Her arterial blood gases showed a pH of 7.41, pCO2 of 40, pO2 of 78, bicarbonate 25, and oxygen saturation was 94% on FiO2 of 36%. Her prothrombin time was 26.1, INR of 2.6, aPTT was 41. D-dimer slightly elevated at 0.71. Her chemistry showed a serum sodium 133, potassium 4.5, chloride 100, bicarbonate 27, anion gap of 6, BUN 23, creatinine 1.8, estimated GFR was 26 mL per minute, her glucose 138, calcium was 8.7, magnesium was 2. Total bilirubin, AST, ALT, alkaline phosphatase were normal. Beta natriuretic peptide was high at 1363. Total protein 7.5, albumin was 3. Lipase was 49. Urinalysis showed the urine was yellow, clear with ___ of 7.5, specific gravity of 1.015. The urine was negative for protein, glucose, ketones, trace of blood, negative for nitrite as well as leukocyte esterase, 0 rbc's, 0 wbc's, and bacteria. Urine toxic screen was negative. Her COVID-19 by PCR is still pending at the time of this dictation. The patient was admitted. IMAGING: Her chest x-ray showed the patient to have parenchymal opacities in the right mid lung and bilateral lung bases, likely consolidative process such as pneumonia. CT scan of the head and cervical spine showed no acute intracranial abnormalities and right frontal encephalomalacia. CT scan of the cervical spine showed no acute fracture or subluxation of the cervical spine, advanced multilevel cervical spondylosis. ASSESSMENT AND PLAN: The patient was admitted with acute on chronic hypoxic respiratory failure, probably community-acquired pneumonia. She has multiple other medical problems including paroxysmal atrial fibrillation with rapid ventricular response for which she received Cardizem bolus and continued on Cardizem drip. Other medical problems include normochromic normocytic anemia, chronic obstructive pulmonary disease, chronic kidney disease, and morbid obesity and obstructive sleep apnea. We will resume all her medications. Continue with IV antibiotic. GLADYS ZAMUDIO MD DR: CAR/carloz JOB#: [id number] / [id number]
[2020-08-10] MEDS: GABAPENTIN 400 MG CAPSULE. PO SCH ×2 (17:12→20:04)
[2020-08-10] MEDS: CARVEDILOL 12.5 MG TABLET PO SCH (17:12)
[2020-08-10] MEDS ORDERED: hydrOXYzine HCL 25 MG TABLET PO SCH (21:00)
[2020-08-10] MEDS ORDERED: NORTRIPTYLINE 10 MG CAPSULE PO SCH (21:00)
[2020-08-10] MEDS ORDERED: rOPINIRole 0.5 MG TABLET. PO SCH (21:00)
[2020-08-11] MEDS ORDERED: VANCOMYCIN 2 GM in IV NORMAL SALINE 500ML 500 ML IV SCH (02:30)
--- NOTE | 2020-08-11 04:12 | NUR ---
Shift Note: pt a/o x3 (does not understand situation, requires reorientation), VSS, no c/o pain or n/v at this time, purwick draining clear yellow urine, pt using her cpap at hs, pt anticipating going home today.
[2020-08-11 07:00] VITALS: BP 138/68
[2020-08-11 07:11] LABS: HEMATOCRIT 25.3 % (36.0-47.0); RED BLOOD COUNT 3.18 x10^6/uL (3.50-5.40); RED CELL DISTRIBUTION WIDTH 17.2 % (11.5-14.5)
[2020-08-11 07:12] LABS: ALBUMIN 2.6 g/dL (3.4-5.0); ALBUMIN/GLOBULIN RATIO 0.6 (1.0-1.7); CALCIUM 8.4 mg/dL (8.5-10.1); CREATININE 1.8 mg/dL (0.6-1.0); GFR 26.7; POTASSIUM 4.1 mmol/L (3.5-5.1); TOTAL BILIRUBIN 0.2 mg/dL (0.2-1.0); TOTAL PROTEIN 6.9 g/dL (6.4-8.2)
[2020-08-11] MEDS ORDERED: LEVOTHYROXINE 75 MCG TABLET PO SCH (07:30)
[2020-08-11] MEDS: GABAPENTIN 400 MG CAPSULE. PO SCH ×2 (08:52→14:00)
[2020-08-11] MEDS: IPRATROPIUM/ALBUTEROL 20/100mcg/INH INHALER. INH SCH (08:53)
[2020-08-11] MEDS: CARVEDILOL 12.5 MG TABLET PO SCH (08:53)
[2020-08-11] MEDS ORDERED: PANTOPRAZOLE 40 MG TABLET. PO SCH (09:00)
[2020-08-11] MEDS ORDERED: MONTELUKAST 10 MG TABLET. PO SCH (09:00)
[2020-08-11] MEDS ORDERED: SIMVASTATIN 10 MG TABLET PO SCH (09:00)
[2020-08-11 11:00] VITALS: BP 147/98
[2020-08-11] MEDS ORDERED: WARFARIN 5 MG TABLET. PO SCH (13:30)
[2020-08-11] MEDS ORDERED: CEFD300C PO (13:52)
--- NOTE | 2020-08-11 14:15 | DISCH ---
HOME HEALTH DISCHARGE/MEDS DISCHARGE INFORMATION: Discharge Date: Aug 11, 2020 Final Diagnosis: Problems Medical Problems: (1) Mental status alteration Status: Acute ATRIAL FIBRILLATION WITH RVR COMMUNITY ACQUIRED PNEUMONIA Condition on Discharge: Stable CODE STATUS: Code Status: Full HOME HEALTH: Face to Face: I certify this patient is under my care and that I, or a nurse practitioner or physician's assistant to the vice president working with me, had a face to face encounter that meets the physician face to face encounter requirements with this patient on 08/11/2020 Medical Condition(s): Pneumonia [facility] For: Medication Management Physical Therapy For: Evalulation/Treatment Occupational Therapy For: Evaluation/Treatment Homebound Status Met By: Unsteady balance w/ amb, POST DISCHARGE ORDERS: Activity Instructions for Disc: Activity as tolerated DIET AFTER DISCHARGE: Cardiac CERTIFICATION STATEMENT: Certification Statement: Based on the above finding, I certify that this patient is confined to the home and needs intermittent nursing home care, physical therapy and/or speech therapy, or continues to need occupational therapy.~ This patient is under my care, and I have initiated the establishment of the plan of care.~ This patient will be followed by myself or a community physician who will periodically review the plan of care. DISCHARGE MEDICATIONS: Home Meds Active Scripts Cefdinir (CEFDINIR) 300 Mg Capsule, 1 CAP PO DAILY for CAP for 7 Days, #7 CAP Prov:GLADYS ZAMUDIO MD 08/11/20 Reported Medications Montelukast Sodium (Montelukast Sodium) 10 Mg Tablet, 1 TAB PO DAILY for copd 08/10/20 Loperamide Hcl (LOPERAMIDE) 2 Mg Tablet, 2 MG PO PRN QHS PRN for DIARRHEA, TAB 06/13/20 Oxycodone Hcl/Acetaminophen (ENDOCET 5-325 TABLET) 1 Each Tablet, 1 TAB PO PRN Q6HRS PRN for PAIN MDD 3 Tablet(s) for 30 Days, #90 TAB 0 Refills 06/13/20 Nortriptyline Hcl (NORTRIPTYLINE HCL) 10 Mg Capsule, 10 MG PO QHS for insomnia, CAP 06/13/20 Gabapentin (GABAPENTIN) 800 Mg Tablet, 800 MG PO TID for NEUROGENIC PAIN, TAB 06/13/20 Hydroxyzine Hcl (HYDROXYZINE HCL) 25 Mg Tablet, 25 MG PO QHS for insomnia, TAB 06/13/20 Simvastatin (SIMVASTATIN) 10 Mg Tablet, 10 MG PO DAILY for FOR CHOLESTEROL, #30 TAB 0 Refills 06/13/20 Ropinirole Hcl (REQUIP) 0.25 Mg Tablet, 0.5 MG PO QHS for RLS, TAB 06/13/20 Omeprazole (OMEPRAZOLE) 20 Mg Capsule.dr, 20 MG PO DAILY for gerd, CAP 06/13/20 Warfarin Sodium (WARFARIN SODIUM) 5 Mg Tablet, 5 MG PO DAILY for afib, TAB 06/13/20 Cyclobenzaprine Hcl (CYCLOBENZAPRINE HCL) 5 Mg Tablet, 5 MG PO PRN TID PRN for MUSCLE SPASTICITY, TAB 06/13/20 Levothyroxine Sodium (LEVOTHYROXINE SODIUM) 75 Mcg Tablet, 75 MCG PO DAILYAC for THYROID SUPPLEMENT, #30 TAB 0 Refills 06/13/20 Carvedilol (COREG) 25 Mg Tablet, 25 MG PO BIDWMEALS for CARDIAC, TAB 06/13/20 GLADYS ZAMUDIO MD Aug 11, 2020 14:15
--- NOTE | 2020-08-11 14:42 | DS ---
DATE OF DISCHARGE: 08/11/2020 HOSPITAL COURSE: The patient was admitted through the Emergency Room with a complaint of shortness of breath. She also stated that she is very weak, cannot do anything, coughing too much, and she is also apparently more confused. She was extensively investigated and was found to be in atrial fibrillation with rapid ventricular response. She also found to have pneumonia and she was started on a Cardizem drip and then we continued her medication. Her heart rate is well controlled now at 68 beats per minute. She is afebrile. White cell count is normal. The patient was seen by the physical therapist. She was able to get out of the bed on her own and was able to walk with a walker and the physical therapist felt she was fairly stable to be able to go home with home health and therefore, she was discharged home to continue on oral antibiotic for pneumonia. PHYSICAL EXAMINATION: GENERAL: When I saw her today, she looked pale. No jaundice, cyanosis, or thyromegaly. No jugular venous distention or limb edema. VITAL SIGNS: Her heart rate was 68, blood pressure was 116/60, temperature was 98, respiratory rate was 13 and oxygen saturation was 97% on 4 liters of oxygen. HEAD, EYES, EARS, NOSE AND THROAT: Showed normocephalic, atraumatic. NECK: Supple. HEART: Showed normal first and second heart sounds. No gallop, rub or murmur. CHEST: Clear to auscultation. No crepitation or rhonchi. ABDOMEN: Distended, soft, nontender. NEUROLOGIC: She is grossly intact. Her intake was 550, output was 1000. LABORATORY DATA: Showed a white cell count of 8000, hemoglobin 8, hematocrit 25, MCV 80 and platelet count of 175,000. Her chemistry showed a serum sodium 138, potassium 4.1, chloride 104, bicarbonate 26, anion gap of 8, BUN 35, creatinine 1.8, estimated GFR was 26 mL per minute. Her glucose 150, calcium was 8.4. Total bilirubin, AST, ALT, alkaline phosphatase were normal. Total protein 6.9, albumin was 2.6. DISCHARGE MEDICATIONS: The patient was discharged home to continue on cefdinir 300 mg once a day, carvedilol 25 mg twice a day, cyclobenzaprine 5 mg 3 times a day as needed, gabapentin 800 mg 3 times a day, hydroxyzine 25 mg at bedtime, levothyroxine 75 mcg once a day, loperamide 2 mg at bedtime for diarrhea as needed, montelukast 10 mg at bedtime, nortriptyline 10 mg at bedtime, omeprazole 20 mg daily, oxycodone/APAP 5/325 one tablet every 6 hours as needed, Requip 0.5 mg at bedtime, simvastatin 10 mg at bedtime, and warfarin 5 mg daily. FINAL DISCHARGE DIAGNOSES: 1. Acute on chronic hypoxic respiratory failure, improving. 2. Community-acquired pneumonia. 3. Atrial fibrillation with rapid ventricular response, rate controlled, well anticoagulated. 4. Chronic obstructive pulmonary disease. 5. Hypertension. GLADYS ZAMUDIO MD DR: CAR/carloz JOB#: [id number] / [id number]
[2020-08-11 15:00] VITALS: BP 145/81
--- NOTE | 2020-08-11 16:00 | NUR ---
Pt discharged home via EMS, Alert and oriented, VSS, all belongings and CPAP sent with EMS. Marcia daughter notified of discharge. Daughter very pleased and thankfully for care. All prescriptions called into [facility].
[2020-08-11] MEDS ORDERED: LACTOBACILLUS RHAMNOSUS GG 1 CAPSULE. PO SCH (21:00)
== END 2020-08-11 15:30 | disposition home or self-care (01) | DRG 177 ==
LOC: ER 21:10 → ICU 23:33
PROVIDERS: ADMIT Hospitalist; ATTEND Hospitalist
PROC: 5A09357 Assistance with Respiratory Ventilation, Less than 24 Consecutive Hours, Continuous Positive Airway Pressure (ICD-10-PCS; principal; 2020-08-10)
DX: J15.6 Pneumonia due to other Gram-negative bacteria (principal); J96.21 Acute and chronic respiratory failure with hypoxia; J44.0 Chronic obstructive pulmonary disease with (acute) lower respiratory infection; E46 Unspecified protein-calorie malnutrition; I13.0 Hypertensive heart and chronic kidney disease with heart failure and stage 1 through stage 4 chronic kidney disease, or unspecified chronic kidney disease; J15.9 Unspecified bacterial pneumonia; D64.9 Anemia, unspecified; E11.22 Type 2 diabetes mellitus with diabetic chronic kidney disease; E66.01 Morbid (severe) obesity due to excess calories; F03.90 Unspecified dementia, unspecified severity, without behavioral disturbance, psychotic disturbance, mood disturbance, and anxiety; G47.33 Obstructive sleep apnea (adult) (pediatric); G93.89 Other specified disorders of brain; I48.0 Paroxysmal atrial fibrillation; I50.9 Heart failure, unspecified; M47.812 Spondylosis without myelopathy or radiculopathy, cervical region; N18.30 Chronic kidney disease, stage 3 unspecified; Z79.01 Long term (current) use of anticoagulants; Z86.73 Personal history of transient ischemic attack (TIA), and cerebral infarction without residual deficits; Z96.641 Presence of right artificial hip joint; Z96.653 Presence of artificial knee joint, bilateral; Z99.81 Dependence on supplemental oxygen; F41.9 Anxiety disorder, unspecified; M19.90 Unspecified osteoarthritis, unspecified site; Z20.822 Contact with and (suspected) exposure to COVID-19
CPT/HCPCS: 36415; 36600; 70450; 71045; 72125; 80048; 80053; 80076; 80307; 81001; 82550; 82803; 83605; 83690; 83735; 83880; 84443; 84484; 85025; 85027; 85379; 85610; 85730; 87040; 93005; 96365; 96372; 96375; J0696; J1650; J1940; J2930; J3370; J3490; J7040; P9612; U0003; 97530; 99285-25

== ENCOUNTER 2020-09-04 09:20 | Inpatient (IN) | payer MEDICARE, MEDICAID ==
[~2020-09-04] VITALS: Ht 172.7 cm; Wt 123.1 kg
[~2020-09-04 09:20] MED LIST changes: +CEFD300C PO; +MONT10TA20 PO
--- NOTE | 2020-09-04 09:30 | PHYS DOC ---
Past History Past Medical History: A-Fib, Anemia, Anxiety, Arthritis, CHF, COPD, CVA, Dementia, Hypertension, TIA, UTI Past Surgical History: Hip Replacement, Knee Replacement, Other Alcohol Use: None General Adult EDM: Chief Complaint: KNEE INJURY HPI: HPI: Patient is an 84-year-old female brought in by EMS for right knee pain and swelling. Patient states she did have a pulse which went to bed last night and denies any recent falls or trauma. She woke up and was in so much pain that she could not get out of bed. Normally ambulates well with a walker. Has a history of bilateral knee replacements, right 1.about 10 to 12 years ago. Denies any recent illness or fevers. Has baseline lower extremity edema that is unchanged. Denies any cellulitis. Denies any other joint pain. Review of Systems: Review of Systems: All other systems within normal limits except for as noted in the HPI Allergies: Allergies: Allergies Coded Allergies Type Severity Reaction Last Updated Verified morphine Allergy Unknown 06/13/20 Yes Physical Exam: PE: Constitutional: Well developed, well nourished, no acute distress, non-toxic appearance. [] HENT: Normocephalic, atraumatic, bilateral external ears normal, nose normal. [] Eyes: PERRLA, conjunctiva normal, no discharge. [] Neck: No rigidity, supple, no stridor. [] Cardiovascular: Regular rate and rhythm, brisk cap refill [] Lungs & Thorax: Non labored symmetric respirations, no tachypnea or respiratory distress [] Abdomen: Soft, nondistended. Skin: Warm, dry, no erythema, no rash. [] Back: Unremarkable Extremities: No deformities, range of motion grossly intact, no lower extremity edema, right knee: Limited range of motion, tenderness over patella, moderate joint effusion. No erythema or warmth [] Neurologic: Alert and oriented X 3, no focal deficits noted. [] Psychologic: Affect normal, judgement normal, mood normal. [] EKG: EKG: [] Radiology/Procedures: Radiology/Procedures: EXAM: XR KNEE 3 VIEWS_RT 09/04/2020 9:40 AM CLINICAL INDICATION: Pain, swelling COMPARISON: None TECHNIQUE: 3 views of the right knee FINDINGS: There is a revised long-stem right total knee prosthesis. No periprosthetic lucency or fracture. There is a large joint effusion. Diffuse soft tissue swelling. IMPRESSION: Revised right total knee prosthesis without definite complication. Large joint effusion. [] Heart Score: Risk Factors: Risk Factors: DM, Current or recent (<one month) smoker, HTN, HLP, family history of CAD, obesity. Risk Scores: Score 0 - 3: 2.5% MACE over next 6 weeks - Discharge Home Score 4 - 6: 20.3% MACE over next 6 weeks - Admit for Clinical Observation Score 7 - 10: 72.7% MACE over next 6 weeks - Early Invasive Strategies Course & Med Decision Making: Course & Med Decision Making Pertinent Labs and Imaging studies reviewed. (See chart for details) [] Dragon Disclaimer: Dragon Disclaimer: This electronic medical record was generated, in whole or in part, using a voice recognition dictation system. Departure Departure: Impression: Primary Impression: Effusion of right knee Disposition: ADMITTED INPT THIS HOSP Admitting Physician: Benito Ignacio Condition: STABLE Referrals: ROE MAYS (PCP) DALI AKERS MD Sep 04, 2020 09:30
--- NOTE | 2020-09-04 10:02 | RAD ---
EXAM: XR KNEE 3 VIEWS_RT 09/04/2020 9:40 AM CLINICAL INDICATION: Pain, swelling COMPARISON: None TECHNIQUE: 3 views of the right knee FINDINGS: There is a revised long-stem right total knee prosthesis. No periprosthetic lucency or fra cture. There is a large joint effusion. Diffuse soft tissue swelling. IMPRESSION: Revised right total knee prosthesis without definite complication. Large joint effusion. Electronically signed by: Cecelia Melendez MD (09/04/2020 10:00 AM) [id number]
[2020-09-04 10:12] LABS: BASO % 1 % (0-3); EOS # 0.2 x10^3/uL (0.0-0.7); EOS % 4 % (0-3); HEMATOCRIT 28.6 % (36.0-47.0); HEMOGLOBIN 8.7 g/dL (12.0-15.5); LYMPH # 1.1 x10^3/uL (1.0-4.8); LYMPH % 18 % (24-48); MEAN CORPUSCULAR HEMOGLOBIN 24 pg (25-35); MEAN CORPUSCULAR HGB CONC 30 g/dL (31-37); MEAN CORPUSCULAR VOLUME 80 fL (79-100); MONO # 0.6 x10^3/uL (0.0-1.1); MONO % 10 % (0-9); NEUT # 4.1 x10^3uL (1.8-7.7); NEUT % 68 % (31-73); PLATELET COUNT 193 x10^3/uL (140-400); RED BLOOD COUNT 3.57 x10^6/uL (3.50-5.40); RED CELL DISTRIBUTION WIDTH 17.2 % (11.5-14.5); WHITE BLOOD COUNT 6.1 x10^3/uL (4.0-11.0)
[2020-09-04 10:19] LABS: CALCIUM 8.3 mg/dL (8.5-10.1); CREATININE 1.7 mg/dL (0.6-1.0); GFR 28.6; POTASSIUM 4.3 mmol/L (3.5-5.1)
[2020-09-04 10:24] LABS: ALBUMIN 2.8 g/dL (3.4-5.0); ALBUMIN/GLOBULIN RATIO 0.6 (1.0-1.7); C REACTIVE PROTEIN 3.3 mg/L (0-3.3); TOTAL BILIRUBIN 0.3 mg/dL (0.2-1.0); TOTAL PROTEIN 7.7 g/dL (6.4-8.2)
[2020-09-04] MEDS ORDERED: ACETAMINOPHEN 325 MG TABLET PO PRN (11:15)
[2020-09-04] MEDS ORDERED: ONDANSETRON PF 4 MG/2 ML VIAL. IVP PRN (11:15)
--- NOTE | 2020-09-04 12:09 | NUR ---
PT ARRIVED TO UNIT VIA EMS. PT IS STABLE AT TIME OF ADMISSION. PT IS ORIENTED TO ROOM AND PROCEEDURES. PT IS OFFERED FOOD AND DRINK AND ACCEPTS. PT IS RESTING IN BED AT THIS TIME. WILL CONTINUE TO MONITOR.
--- NOTE | 2020-09-04 12:13 | HP ---
ADMIT DATE: 09/04/2020 ATTENDING PHYSICIAN: Dr. Samuel. CHIEF COMPLAINT: Right knee pain. HISTORY OF PRESENT ILLNESS: The patient is an 84-year-old female well known to me from several previous admissions. Her main problem is right knee pain. She has a small effusion. She is morbidly obese. She cannot bear weight. She had previous total knee arthroplasty with hardware 12 years ago. In the ED, the extensive workup showed no obvious infections. Clearly, there is a small amount of effusion. We did not wish to introducer needle to introduce bacteria. She is also on chronic anticoagulation for atrial fibrillation. When I saw her, she was fairly alert, but her symptoms are localized. She cannot bear weight on that knee. She lives alone. She is admitted to the hospital then for further treatment, physical therapy evaluation. I will try to get her brace for the knee. She also needs a higher level of care for subacute rehabilitation. Therefore, she is admitted with intractable knee pain refractory to outpatient care. PAST MEDICAL HISTORY: Significant for chronic congestive heart failure, chronic kidney disease stage 3, obstructive sleep apnea, morbid obesity, paroxysmal atrial fibrillation and degenerative arthritis of both knees. ALLERGIES: SHE HAS ALLERGIES TO MORPHINE, WHICH CAUSES A RASH. CURRENT MEDICATIONS: Reviewed. She was taking Coreg 25 mg daily, Cefdinir, Flexeril p.r.n., Neurontin, hydroxyzine, Synthroid, loperamide, Singulair, nortriptyline, omeprazole, oxycodone p.r.n. pain, Requip, Zocor and Coumadin 5 mg p.o. daily. SOCIAL HISTORY: She is a nonsmoker, nondrinker. FAMILY HISTORY: Noncontributory. REVIEW OF SYSTEMS: Significant for localized knee pain. No recent trauma or falls. She lives at home with her daughter, but the daughter is debilitated. A grandson is too young to care for. No nausea, vomiting or chest pain. No recent COVID exposure. All other systems reviewed and turned to be negative. PHYSICAL EXAMINATION: GENERAL: When I saw her, this is a pleasant, alert, elderly female. INITIAL VITAL SIGNS: Showed blood pressure 145/81, pulse is 65 and regular. She was afebrile, oxygen saturation 96% on 4 liters of nasal cannula. HEENT: Head is without trauma. Pupils are reactive. Sclerae nonicteric. Oropharynx clear. NECK: Supple, no bruits. LUNGS: Clear. CARDIOVASCULAR: Showed distant heart tones. No gallops. ABDOMEN: Obese, protuberant. No organomegaly. Bowel sounds are hypoactive. EXTREMITIES: Showed degenerative arthritis of both knees. There is a small amount of effusion. It is painful to touch and palpation. Range of motion is limited. There is no obvious redness or erythema. It does not appear she has an infection nor does she have a hemarthrosis. She has 2+ nonpitting edema of the distal extremities. SKIN: Otherwise warm and dry without any inflammation, redness or erythema. No open sores. PERTINENT LABORATORY STUDIES: The hemoglobin from last month was 8.0 mg/dL. Electrolytes were fairly unremarkable. Creatinine at that time was 1.8. ASSESSMENT: 1. An 84-year-old female with intractable right knee pain. 2. Degenerative arthritis related to morbid obesity. 3. Anemia of chronic disease. 4. Previous history of total knee arthroplasty with hardware. 5. Paroxysmal atrial fibrillation. 6. Chronic anticoagulation. PLAN: 1. Admit to the inpatient unit. 2. Bed rest. 3. Continue home meds. 4. I will try to get her brace for support. 5. Conservative therapy, physical therapy to see. 6. The patient at this time does not have any obvious infections. 7. I will try to get her to subacute rehab for continued strengthening. STACEY SAMUEL MD DR: GISSEL/carloz JOB#: [id number] / [id number]
[2020-09-04 12:26] VITALS: BP 158/98
[2020-09-04] MEDS ORDERED: HYDR25TA PO (12:37)
[2020-09-04] MEDS ORDERED: POTA10TA12 PO (12:37)
[2020-09-04] MEDS ORDERED: WARF-31 PO (12:37)
[2020-09-04 14:56] VITALS: BP 134/72
[2020-09-04] MEDS: CARVEDILOL 12.5 MG TABLET PO SCH (17:00)
[2020-09-04] MEDS ORDERED: LOPERAMIDE 2 MG CAPSULE PO PRN (17:30)
[2020-09-04] MEDS ORDERED: WARFARIN 6 MG TABLET. PO SCH (17:30)
[2020-09-04 18:42] LABS: BACTERIA,URINE 0 /HPF (0-FEW); BILIRUBIN,URINE NEG (NEG); CLARITY,URINE CLEAR; COLOR,URINE COLORLESS; GLUCOSE,URINE NEG (NEG); NITRITE,URINE NEG (NEG); RBC,URINE RARE /HPF (0-2); SQUAMOUS EPITHELIAL CELL,UR MOD /LPF; UROBILINOGEN,URINE 0.2 mg/dL (0.2 mg/dL); WBC,URINE 0 /HPF (0-4)
[2020-09-04 20:00] VITALS: BP 151/71
[2020-09-04] MEDS: SIMVASTATIN 10 MG TABLET PO SCH (20:36)
[2020-09-04] MEDS: GABAPENTIN 400 MG CAPSULE. PO SCH (20:36)
[2020-09-04] MEDS: NORTRIPTYLINE 10 MG CAPSULE PO SCH (20:36)
[2020-09-04] MEDS: CYCLOBENZAPRINE 10 MG TABLET. PO PRN (20:37)
[2020-09-04] MEDS ORDERED: WARFARIN 5 MG TABLET. PO SCH (21:00)
[2020-09-05 00:19] VITALS: BP 146/82
--- NOTE | 2020-09-05 01:41 | NUR ---
Pt reports minimal pain to left knee this shift. However pt is fearful of attempting to bear any weight on her LLE. Pt declined to get up to [facility] Pt able to turn self in bed for use of bedpan. Will continue to encourage ambulation. PT/OT to see in AM. Addendum: 09/05/20 at 0253 by STACIA ACE RN Correction: right knee and RLE
[2020-09-05] MEDS: CYCLOBENZAPRINE 10 MG TABLET. PO PRN ×2 (05:34→20:09)
[2020-09-05] MEDS: LEVOTHYROXINE 75 MCG TABLET PO SCH (05:35)
[2020-09-05 05:36] VITALS: BP 127/69
[2020-09-05 06:24] LABS: CALCIUM 8.1 mg/dL (8.5-10.1); CREATININE 1.7 mg/dL (0.6-1.0); GFR 28.6; POTASSIUM 4.3 mmol/L (3.5-5.1)
[2020-09-05 06:38] LABS: BASO % 1 % (0-3); EOS # 0.2 x10^3/uL (0.0-0.7); EOS % 3 % (0-3); HEMATOCRIT 26.5 % (36.0-47.0); HEMOGLOBIN 8.3 g/dL (12.0-15.5); LYMPH # 1.4 x10^3/uL (1.0-4.8); LYMPH % 22 % (24-48); MEAN CORPUSCULAR HEMOGLOBIN 25 pg (25-35); MEAN CORPUSCULAR HGB CONC 31 g/dL (31-37); MEAN CORPUSCULAR VOLUME 79 fL (79-100); MONO % 17 % (0-9); NEUT # 3.6 x10^3uL (1.8-7.7); NEUT % 58 % (31-73); PLATELET COUNT 170 x10^3/uL (140-400); RED BLOOD COUNT 3.34 x10^6/uL (3.50-5.40); RED CELL DISTRIBUTION WIDTH 16.9 % (11.5-14.5); WHITE BLOOD COUNT 6.2 x10^3/uL (4.0-11.0)
[2020-09-05] MEDS ORDERED: FLU VACC QS 2020-21(6MOS+)/PF 0.5 ML SYRINGE. VAX IM ONE (09:00)
[2020-09-05] MEDS: CARVEDILOL 12.5 MG TABLET PO SCH ×2 (09:09→17:07)
[2020-09-05] MEDS: MONTELUKAST 10 MG TABLET. PO SCH (09:09)
[2020-09-05] MEDS: PANTOPRAZOLE 40 MG TABLET. PO SCH (09:09)
[2020-09-05] MEDS: GABAPENTIN 400 MG CAPSULE. PO SCH ×2 (09:09→20:09)
[2020-09-05 10:34] VITALS: BP 101/65
[2020-09-05] MEDS: POTASSIUM CHLORIDE 10 MEQ TABLET.ER. PO SCH (11:04)
[2020-09-05] MEDS: ACETAMINOPHEN 325 MG TABLET PO PRN ×2 (12:03→20:09)
--- NOTE | 2020-09-05 12:55 | PN ---
DATE: 09/05/2020 ATTENDING PHYSICIAN: Dr. Samuel. SUBJECTIVE: Still has significant right knee pain, unable to bear weight. She requires 2:1 just for transfer up to a chair to eat lunch. OBJECTIVE FINDINGS: VITAL SIGNS: Blood pressure is 127/69, pulse 79 and regular. She is afebrile. Oxygen saturation 95% on 4 liters by nasal cannula. HEENT: Head is without trauma. Pupils are reactive. Sclerae nonicteric. Oropharynx is clear. NECK: Supple, no bruits. LUNGS: Clear. CARDIOVASCULAR: Showed regular heart tones. No gallops. ABDOMEN: Soft, obese, protuberant. EXTREMITIES: Showed significant swelling and effusion of the right knee. Range of motion is limited. She is nonweightbearing. SKIN: Warm and dry. LABORATORY DATA: Chemistry repeat creatinine is still 1.7 mg/dL. Hemoglobin 8.3 grams with a white count of 6200. ASSESSMENT: 1. An 84-year-old female with intractable right knee pain. 2. Degenerative arthritis. 3. Anemia of chronic disease. 4. Previous total knee arthroplasty. 5. Paroxysmal atrial fibrillation. 6. Chronic anticoagulation. 7. Chronic kidney disease stage 3. PLAN: 1. Physical therapy recommendation. 2. Pain control. 3. Brace for support. 4. We are working on discharge to a subacute rehab for higher level of care. STACEY SAMUEL MD DR: GISSEL/carloz JOB#: [id number] / [id number]
[2020-09-05 14:38] VITALS: BP 98/65
[2020-09-05 19:39] VITALS: BP 124/62
[2020-09-05] MEDS: SIMVASTATIN 10 MG TABLET PO SCH (20:09)
[2020-09-05] MEDS: NORTRIPTYLINE 10 MG CAPSULE PO SCH (20:11)
[2020-09-06 05:00] VITALS: BP 144/81
[2020-09-06] MEDS: LEVOTHYROXINE 75 MCG TABLET PO SCH (05:42)
[2020-09-06] MEDS: ACETAMINOPHEN 325 MG TABLET PO PRN ×2 (05:42→20:28)
[2020-09-06] MEDS: GABAPENTIN 400 MG CAPSULE. PO SCH ×2 (08:18→20:27)
[2020-09-06] MEDS: MONTELUKAST 10 MG TABLET. PO SCH (08:18)
[2020-09-06] MEDS: PANTOPRAZOLE 40 MG TABLET. PO SCH (08:18)
[2020-09-06] MEDS: POTASSIUM CHLORIDE 10 MEQ TABLET.ER. PO SCH (08:18)
[2020-09-06] MEDS: CARVEDILOL 12.5 MG TABLET PO SCH ×2 (08:19→16:57)
--- NOTE | 2020-09-06 11:57 | PN ---
DATE: 09/06/2020 SUBJECTIVE: Significant right knee pain, unable to bear weight. She still requires 2:1 assist for transfer. No other new complaints. OBJECTIVE FINDINGS: VITAL SIGNS: Blood pressure today is 144/81, pulse 97 and regular. She is afebrile. Oxygen saturation 99% on 4 liters. HEENT: Head is without trauma. Pupils are reactive. Sclerae nonicteric. Oropharynx clear. NECK: Supple. CARDIOVASCULAR: Showed regular heart tones. ABDOMEN: Obese, protuberant. No organomegaly. EXTREMITIES: Showed significant swelling, slight effusion of the right knee. There is degenerative arthritis of both hands. SKIN: Warm and dry. ASSESSMENT: 1. An 84-year-old female with intractable right knee pain. 2. Degenerative arthritis. 3. Chronic anemia. 4. Previous total knee arthroplasty. 5. Paroxysmal atrial fibrillation. 6. Chronic kidney disease stage 3. 7. Chronic anticoagulation. PLAN: 1. Continue physical therapy as recommended. 2. Pain control. 3. Await placement. 4. Brace for support. STACEY SAMUEL MD DR: GISSEL/carloz JOB#: [id number] / [id number]
[2020-09-06 11:59] VITALS: BP 97/66
[2020-09-06] MEDS: CYCLOBENZAPRINE 10 MG TABLET. PO PRN (15:29)
[2020-09-06 19:08] VITALS: BP 127/73
[2020-09-06] MEDS: NORTRIPTYLINE 10 MG CAPSULE PO SCH (20:27)
[2020-09-06] MEDS: SIMVASTATIN 10 MG TABLET PO SCH (20:28)
[2020-09-07] MEDS: ACETAMINOPHEN 325 MG TABLET PO PRN (05:32)
[2020-09-07] MEDS: LEVOTHYROXINE 75 MCG TABLET PO SCH (05:32)
[2020-09-07 05:40] VITALS: BP 136/72
[2020-09-07] MEDS: PANTOPRAZOLE 40 MG TABLET. PO SCH (07:28)
[2020-09-07 07:44] VITALS: BP 136/72
[2020-09-07] MEDS: POTASSIUM CHLORIDE 10 MEQ TABLET.ER. PO SCH (08:11)
[2020-09-07] MEDS: GABAPENTIN 400 MG CAPSULE. PO SCH ×2 (08:11→20:06)
[2020-09-07] MEDS: MONTELUKAST 10 MG TABLET. PO SCH (08:11)
[2020-09-07] MEDS: CARVEDILOL 12.5 MG TABLET PO SCH ×2 (08:11→16:52)
[2020-09-07 11:08] VITALS: BP 103/73
--- NOTE | 2020-09-07 12:54 | DISCH ---
DISCHARGE ORDERS DISCHARGE DATE: Sep 07, 2020 FINAL DIAGNOSIS Pain in the right knee difficxulty walking CONDITION AT DISCHARGE: Stable Code Status: Full SNF STAY <30 DAYS: Yes POST DISCHARGE ORDERS: ACTIVITY ORDERS: Activity as tolerated WEIGHT BEARING STATUS: Full weight bearing DIET AFTER DISCHARGE: Cardiac TREATMENT/EQUIPMENT ORDERS: ADAPTIVE EQUIPMENT NEEDED: None RESPIRATORY EQUIPMENT: CPAP DISCHARGE MEDICATIONS: Home Meds Reported Medications Potassium Chloride (KLOR-CON M10) 10 Meq Tab.er.prt, 1 TAB PO DAILY for supplement for 30 Days, #30 TAB 0 Refills 09/04/20 Hydroxyzine Hcl (HYDROXYZINE HCL) 25 Mg Tablet, 1 TAB PO HS for blood pressure, #30 TAB 09/04/20 Warfarin Sodium (WARFARIN SODIUM) 5 Mg Tablet, 5 MG PO HS for blood thinner, TAB 09/04/20 Montelukast Sodium (Montelukast Sodium) 10 Mg Tablet, 1 TAB PO DAILY for copd 08/10/20 Loperamide Hcl (LOPERAMIDE) 2 Mg Tablet, 2 MG PO PRN QHS PRN for DIARRHEA, TAB 06/13/20 Nortriptyline Hcl (NORTRIPTYLINE HCL) 10 Mg Capsule, 10 MG PO QHS for insomnia, CAP 06/13/20 Gabapentin (GABAPENTIN) 800 Mg Tablet, 800 MG PO BID for NEUROGENIC PAIN, TAB 06/13/20 Hydroxyzine Hcl (HYDROXYZINE HCL) 25 Mg Tablet, 25 MG PO QHS for insomnia, TAB 06/13/20 Simvastatin (SIMVASTATIN) 10 Mg Tablet, 10 MG PO DAILY for FOR CHOLESTEROL, #30 TAB 0 Refills 06/13/20 Omeprazole (OMEPRAZOLE) 20 Mg Capsule.dr, 20 MG PO DAILY for gerd, CAP 06/13/20 Warfarin Sodium (WARFARIN SODIUM) 5 Mg Tablet, 1 MG PO DAILY for afib, TAB 06/13/20 Cyclobenzaprine Hcl (CYCLOBENZAPRINE HCL) 5 Mg Tablet, 5 MG PO PRN TID PRN for MUSCLE SPASTICITY, TAB 06/13/20 Levothyroxine Sodium (LEVOTHYROXINE SODIUM) 75 Mcg Tablet, 75 MCG PO DAILYAC for THYROID SUPPLEMENT, #30 TAB 0 Refills 06/13/20 Carvedilol (COREG) 25 Mg Tablet, 25 MG PO BIDWMEALS for CARDIAC, TAB 06/13/20 GLADYS ZAMUDIO MD Sep 07, 2020 12:54
--- NOTE | 2020-09-07 13:16 | DS ---
DATE OF DISCHARGE: 09/07/2020 HOSPITAL COURSE: The patient is an 84-year-old female patient who was admitted through the Emergency Room with a complaint of pain in her right knee joint. She has a small effusion. She is morbidly obese and cannot bear weight. She had previous total knee arthroplasty with hardware 12 years ago. In the ED, the extensive workup showed no obvious infection. There is small amount of effusion and she is also on chronic anticoagulation for atrial fibrillation. Apparently, she was seen in consultation by the physical therapist and she has been able to walk, although she continued to be weak and debilitated and therefore, a decision was made to discharge her to [facility] to continue the process of rehabilitation. PHYSICAL EXAMINATION: GENERAL: When I saw her today, she looked well and was clearly in no apparent respiratory distress. She is pale, but no jaundice, cyanosis or thyromegaly. No jugular venous distention. No lower limb edema. VITAL SIGNS: Her heart rate was 85, blood pressure was 103/73, temperature 97.5, respiratory rate was 18 and oxygen saturation was 89%. HEAD, EYES, EARS, NOSE AND THROAT: Showed normocephalic, atraumatic. NECK: Supple. HEART: Showed normal first and second heart sounds. No gallop, rub or murmur. CHEST: Clear to auscultation. No crepitation or rhonchi. ABDOMEN: Distended, soft, nontender. NEUROLOGIC: She is grossly intact. Her intake was 1560, no output was recorded. LABORATORY DATA: Her lab work this morning showed a white cell count of 6200, hemoglobin 8.3, hematocrit 26.5, MCV 79 and platelet count of 170,000 with normal manual differential. Her serum sodium was 139, potassium 4.3, chloride 106, bicarbonate 27, anion gap of 6, BUN 28, creatinine 1.7, estimated GFR was 28 mL per minute. Her glucose 116 and calcium was 8.1. Her prothrombin time as of this morning was 23.3, INR of 2.3. Urinalysis essentially unremarkable and her coronavirus, the PCR was not detectable. DISCHARGE MEDICATIONS: She was discharged to [facility] to continue on carvedilol 25 mg twice a day with meals; cyclobenzaprine 5 mg 3 times a day; gabapentin 800 mg twice a day; hydroxyzine 25 mg at bedtime, hydroxyzine 25 mg once a day; levothyroxine sodium 75 mcg once a day; loperamide 2 mg at bedtime for diarrhea; montelukast 10 mg at bedtime; nortriptyline 10 mg at bedtime; omeprazole 20 mg daily; potassium chloride 20 mEq once a day; simvastatin 10 mg at bedtime; warfarin 5 mg daily. FINAL ASSESSMENT: 1. An 84-year-old female with intractable right knee pain that is improving. 2. Degenerative joint arthritis. 3. Chronic anemia. 4. 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 5. Paroxysmal atrial fibrillation. 6. Chronic kidney disease stage 3. 7. Chronic anticoagulation. GLADYS ZAMUDIO MD DR: CAR/carloz JOB#: [id number] / [id number]
[2020-09-07 15:22] VITALS: BP 113/72
[2020-09-07] MEDS ORDERED: WARFARIN 4 MG TABLET. PO SCH (16:00)
[2020-09-07 19:58] VITALS: BP 138/64
[2020-09-07] MEDS: SIMVASTATIN 10 MG TABLET PO SCH (20:06)
[2020-09-07] MEDS: NORTRIPTYLINE 10 MG CAPSULE PO SCH (20:06)
[2020-09-07 22:18] VITALS: BP 117/68
[2020-09-08] MEDS: LEVOTHYROXINE 75 MCG TABLET PO SCH (06:26)
[2020-09-08 07:48] VITALS: BP 145/81
[2020-09-08] MEDS: MONTELUKAST 10 MG TABLET. PO SCH (08:15)
[2020-09-08] MEDS: PANTOPRAZOLE 40 MG TABLET. PO SCH (08:15)
[2020-09-08] MEDS: GABAPENTIN 400 MG CAPSULE. PO SCH (08:15)
[2020-09-08 08:16] VITALS: BP 117/68
[2020-09-08] MEDS: CARVEDILOL 12.5 MG TABLET PO SCH (08:16)
[2020-09-08] MEDS: POTASSIUM CHLORIDE 10 MEQ TABLET.ER. PO SCH (08:16)
--- NOTE | 2020-09-08 09:40 | NUR ---
NURSING NOTE DISCHARGE PT DISCHARGED TO [facility] VIA TRANSPORT. ATTEMPT TO CALL REPORT, THE NURSE WILL CALL BACK. PHONED DARRIN TO NOTIFY OF DISCHARGE. NO COMPLICATIONS. EMILY OLIVEIRA.
== END 2020-09-08 09:43 | DRG 554 ==
LOC: ER 09:20 → 1 SOUTH 11:04
PROVIDERS: ADMIT Hospitalist; ATTEND Hospitalist
DX: M17.11 Unilateral primary osteoarthritis, right knee (principal); I13.0 Hypertensive heart and chronic kidney disease with heart failure and stage 1 through stage 4 chronic kidney disease, or unspecified chronic kidney disease; Z68.41 Body mass index [BMI] 40.0-44.9, adult; N18.30 Chronic kidney disease, stage 3 unspecified; D63.8 Anemia in other chronic diseases classified elsewhere; E11.22 Type 2 diabetes mellitus with diabetic chronic kidney disease; E66.01 Morbid (severe) obesity due to excess calories; E78.5 Hyperlipidemia, unspecified; F03.90 Unspecified dementia, unspecified severity, without behavioral disturbance, psychotic disturbance, mood disturbance, and anxiety; I48.0 Paroxysmal atrial fibrillation; I50.9 Heart failure, unspecified; J44.9 Chronic obstructive pulmonary disease, unspecified; Z79.01 Long term (current) use of anticoagulants; Z82.49 Family history of ischemic heart disease and other diseases of the circulatory system; Z86.73 Personal history of transient ischemic attack (TIA), and cerebral infarction without residual deficits; Z87.891 Personal history of nicotine dependence; Z96.649 Presence of unspecified artificial hip joint; Z96.653 Presence of artificial knee joint, bilateral; F41.9 Anxiety disorder, unspecified; Z88.8 Allergy status to other drugs, medicaments and biological substances; Z20.822 Contact with and (suspected) exposure to COVID-19
CPT/HCPCS: 36415; 73562; 80048; 80053; 81001; 85025; 85610; 86140; 90471; 90686; 97163; J3010; U0003; 97110; 97116; 97530; 97535; 99285-25